=== PATIENT | male | born 1945 | race Caucasian/White ===

== ENCOUNTER 2017-07-07 17:17 | Inpatient (IN) | payer OTHER ==
[~2017-07-07] VITALS: Ht 188 cm; Wt 103.1 kg
[~2017-07-07 17:17] MED LIST: AMIO200 PO; AMOCLA500 PO; ASCO500 PO; ASPI81CH PO; BISA5EC PO; BUME1 PO; CALCA500CH PO; CARV25 PO; CARV6.25 PO; DIGO.125 PO; DIGOX125 MCG PO; DILT30 PO; Ferrous Sulfat325 M2 PO; GABA100; GABA100 PO; HYDURE500 PO; IBUP600 PO; LISI20 PO; LISI5 PO; METO25 PO; MULVITMIND PO; Milk Of Ma400 MG/5 M PO; NAPR250 PO; OMEP20ER PO; OXYC5; Percocet 5-3251 EACH PO; Primalev 10-301 EACH PO; SPIR50 PO; Senna Plus Tab1 EACH PO; Senna S Tablet1 EACH PO; Simvastatin20 MG PO; TORSE20 PO; TRAZ100 PO; VENL25; VENL37.5ER PO; VITAMIN D-32000 UNIT PO; WARF5 PO
[2017-07-07] MEDS ORDERED: ALPR.5CR (18:08)
[2017-07-07] MEDS ORDERED: LORA1 PO (18:11)
[2017-07-07] MEDS ORDERED: OXYC5 PO (18:12)
[2017-07-07] MEDS ORDERED: Omeprazole20 M1 PO (18:12)
[2017-07-07] MEDS ORDERED: SILD50TA PO (18:12)
[2017-07-07 18:29] LABS: BASOPHILS ABSOLUTE AUTO 0.04 K/mm3 (0.00-0.23); BASOPHILS PERCENT AUTO 0 % (0-2); EOSINOPHILS ABSOLUTE AUTO 0.27 K/mm3 (0.00-0.68); EOSINOPHILS PERCENT AUTO 1 % (0-6); Hematocrit 42.8 % (37.0-53.0); Hemoglobin 13.6 g/dL (13.5-17.5); IMMATURE GRAN PERCENT AUTO 1 % (0-1); LYMPHOCYTES ABSOLUTE AUTO 1.39 K/mm3 (0.84-5.20); LYMPHOCYTES PERCENT AUTO 5 % (21-46); MONOCYTES ABSOLUTE AUTO 2.08 K/mm3 (0.16-1.47); MONOCYTES PERCENT AUTO 8 % (4-13); Mean Corpuscular HGB 29.3 pg (26.0-34.0); Mean Corpuscular HGB Conc 31.8 g/dL (31.5-36.5); Mean Corpuscular Volume 92 fL (80-100); Mean Platelet Volume 11.3 fL (9.1-12.4); NEUTROPHILS ABSOLUTE AUTO 22.78 K/mm3 (1.96-9.15); NEUTROPHILS PERCENT AUTO 85 % (41-73); Platelet Count 464 K/mm3 (150-400); RDW Coefficient Variation 18.4 % (11.7-14.2); RDW Standard Deviation 62.6 fL (35.1-46.3); Red Blood Cell Count 4.64 M/mm3 (4.30-5.90); White Blood Cell Count 26.86 K/mm3 (4.00-11.30)
[2017-07-07 18:44] LABS: Albumin, Blood 2.5 g/dL (3.4-5.0); Albumin/Globulin Ratio 0.5 (0.8-1.8); Bun/Creatinine Ratio 20.9 (12.0-20.0); Calcium, Blood 8.4 mg/dL (8.5-10.1); Creatinine, Blood 1.34 mg/dL (0.60-1.20); Globulin, Blood 5.2 g/dL (2.2-4.0); Potassium, Blood 4.4 mmol/L (3.5-5.5); Total Protein, Blood 7.7 g/dL (6.4-8.2)
[2017-07-07 18:48] LABS: Prothrombin Time Results 51.2 Sec (9.7-11.5)
[2017-07-07 19:01] LABS: International Normalized Ratio 4.69
[2017-07-07 19:08] LABS: Bilirubin, Total 0.7 mg/dL (0.1-1.0)
[2017-07-08 05:44] LABS: BASOPHILS ABSOLUTE AUTO 0.05 K/mm3 (0.00-0.23); BASOPHILS PERCENT AUTO 0 % (0-2); EOSINOPHILS ABSOLUTE AUTO 0.29 K/mm3 (0.00-0.68); EOSINOPHILS PERCENT AUTO 1 % (0-6); Hematocrit 38.2 % (37.0-53.0); Hemoglobin 12.1 g/dL (13.5-17.5); IMMATURE GRAN ABSOLUTE AUTO 0.31 K/mm3 (0.00-0.10); IMMATURE GRAN PERCENT AUTO 1 % (0-1); LYMPHOCYTES ABSOLUTE AUTO 1.21 K/mm3 (0.84-5.20); LYMPHOCYTES PERCENT AUTO 5 % (21-46); MONOCYTES ABSOLUTE AUTO 1.58 K/mm3 (0.16-1.47); MONOCYTES PERCENT AUTO 7 % (4-13); Mean Corpuscular HGB 28.6 pg (26.0-34.0); Mean Corpuscular HGB Conc 31.7 g/dL (31.5-36.5); Mean Corpuscular Volume 90 fL (80-100); Mean Platelet Volume 11.7 fL (9.1-12.4); NEUTROPHILS ABSOLUTE AUTO 19.56 K/mm3 (1.96-9.15); NEUTROPHILS PERCENT AUTO 85 % (41-73); Platelet Count 375 K/mm3 (150-400); RDW Coefficient Variation 18.1 % (11.7-14.2); RDW Standard Deviation 60.3 fL (35.1-46.3); Red Blood Cell Count 4.23 M/mm3 (4.30-5.90)
[2017-07-08 05:57] LABS: International Normalized Ratio 2.76
[2017-07-08 05:59] LABS: Prothrombin Time Results 29.6 Sec (9.7-11.5)
[2017-07-08 06:02] LABS: Albumin, Blood 2.1 g/dL (3.4-5.0); Anion Gap 10 mmol/L (6-16); Blood Urea Nitrogen 24 mg/dL (8-24); Bun/Creatinine Ratio 21.1 (12.0-20.0); CO2, Blood 20 mmol/L (21-32); Calcium, Blood 7.6 mg/dL (8.5-10.1); Chloride, Blood 108 mmol/L (98-108); Creatinine, Blood 1.14 mg/dL (0.60-1.20); Glomerular Filtration Rate >60 (60-); Glucose, Blood 119 mg/dL (70-99); Phosphorus, Blood 2.6 mg/dL (2.5-4.9); Potassium, Blood 4.3 mmol/L (3.5-5.5); Sodium, Blood 138 mmol/L (136-145)
[2017-07-08] MEDS ORDERED: DONE5 PO (17:27)
[2017-07-09 05:51] LABS: Hematocrit 35.8 % (37.0-53.0); Hemoglobin 11.5 g/dL (13.5-17.5); Mean Corpuscular HGB 28.9 pg (26.0-34.0); Mean Corpuscular HGB Conc 32.1 g/dL (31.5-36.5); Mean Corpuscular Volume 90 fL (80-100); Mean Platelet Volume 11.2 fL (9.1-12.4); Platelet Count 478 K/mm3 (150-400); RDW Coefficient Variation 17.8 % (11.7-14.2); RDW Standard Deviation 58.8 fL (35.1-46.3); Red Blood Cell Count 3.98 M/mm3 (4.30-5.90)
[2017-07-09 06:08] LABS: Bun/Creatinine Ratio 16.4 (12.0-20.0); Calcium, Blood 7.6 mg/dL (8.5-10.1); Creatinine, Blood 1.28 mg/dL (0.60-1.20)
[2017-07-09 06:12] LABS: BAND PERCENT MAN 7 % (0-8); BASOPHILS PERCENT MAN 0 % (0-2); EOSINOPHILS ABSOLUTE MAN 0.21 K/mm3 (0.00-0.68); EOSINOPHILS PERCENT MAN 1 % (0-6); LYMPHOCYTES ABSOLUTE MAN 0.43 K/mm3 (0.84-5.20); LYMPHOCYTES PERCENT MAN 2 % (21-46); MONOCYTES ABSOLUTE MAN 1.29 K/mm3 (0.16-1.47); MONOCYTES PERCENT MAN 6 % (4-13); MYELOCYTE ABSOLUTE MAN 0.21 K/mm3 (0.00-0.00); MYELOCYTE PERCENT MAN 1 % (0-0); NEUTROPHILS ABSOLUTE MAN 19.44 K/mm3 (1.96-9.15); SEG NEUTROPHILS PERCENT MAN 83 % (41-73); TOTAL CELLS COUNTED 100
[2017-07-09 12:58] LABS: International Normalized Ratio 1.41; Prothrombin Time Results 14.8 Sec (9.7-11.5)
[2017-07-09 21:18] LABS: Vancomycin, Trough 12.4 ug/mL (5.0-10.0)
[2017-07-10 05:18] LABS: BASOPHILS ABSOLUTE AUTO 0.05 K/mm3 (0.00-0.23); BASOPHILS PERCENT AUTO 0 % (0-2); EOSINOPHILS ABSOLUTE AUTO 0.38 K/mm3 (0.00-0.68); EOSINOPHILS PERCENT AUTO 2 % (0-6); Hematocrit 37.3 % (37.0-53.0); Hemoglobin 11.9 g/dL (13.5-17.5); IMMATURE GRAN ABSOLUTE AUTO 0.28 K/mm3 (0.00-0.10); IMMATURE GRAN PERCENT AUTO 1 % (0-1); LYMPHOCYTES ABSOLUTE AUTO 1.25 K/mm3 (0.84-5.20); LYMPHOCYTES PERCENT AUTO 6 % (21-46); MONOCYTES ABSOLUTE AUTO 0.82 K/mm3 (0.16-1.47); MONOCYTES PERCENT AUTO 4 % (4-13); Mean Corpuscular HGB 29.2 pg (26.0-34.0); Mean Corpuscular HGB Conc 31.9 g/dL (31.5-36.5); Mean Corpuscular Volume 91 fL (80-100); Mean Platelet Volume 11.4 fL (9.1-12.4); NEUTROPHILS ABSOLUTE AUTO 17.64 K/mm3 (1.96-9.15); NEUTROPHILS PERCENT AUTO 86 % (41-73); Platelet Count 543 K/mm3 (150-400); RDW Coefficient Variation 17.9 % (11.7-14.2); RDW Standard Deviation 59.2 fL (35.1-46.3); Red Blood Cell Count 4.08 M/mm3 (4.30-5.90); White Blood Cell Count 20.42 K/mm3 (4.00-11.30)
[2017-07-10 05:40] LABS: International Normalized Ratio 1.41; Prothrombin Time Results 14.8 Sec (9.7-11.5)
[2017-07-10 08:50] LABS: Creatinine, Blood 1.31 mg/dL (0.60-1.20)
[2017-07-11 05:13] LABS: Hematocrit 38.5 % (37.0-53.0); Hemoglobin 12.3 g/dL (13.5-17.5); Mean Corpuscular HGB 29.3 pg (26.0-34.0); Mean Corpuscular HGB Conc 31.9 g/dL (31.5-36.5); Mean Corpuscular Volume 92 fL (80-100); Mean Platelet Volume 11.6 fL (9.1-12.4); Platelet Count 538 K/mm3 (150-400); RDW Coefficient Variation 18.1 % (11.7-14.2); White Blood Cell Count 21.78 K/mm3 (4.00-11.30)
[2017-07-11 05:34] LABS: International Normalized Ratio 1.71; Prothrombin Time Results 18.1 Sec (9.7-11.5)
[2017-07-11 05:36] LABS: BAND PERCENT MAN 6 % (0-8); BASOPHILS PERCENT MAN 0 % (0-2); EOSINOPHILS PERCENT MAN 0 % (0-6); LYMPHOCYTES PERCENT MAN 6 % (21-46); MONOCYTES ABSOLUTE MAN 0.65 K/mm3 (0.16-1.47); MONOCYTES PERCENT MAN 3 % (4-13); NEUTROPHILS ABSOLUTE MAN 19.81 K/mm3 (1.96-9.15); SEG NEUTROPHILS PERCENT MAN 85 % (41-73); TOTAL CELLS COUNTED 100
[2017-07-12 07:19] LABS: Hematocrit 41.9 % (37.0-53.0); Hemoglobin 13.2 g/dL (13.5-17.5); Mean Corpuscular HGB 29.5 pg (26.0-34.0); Mean Corpuscular HGB Conc 31.5 g/dL (31.5-36.5); Mean Corpuscular Volume 94 fL (80-100); Mean Platelet Volume 11.1 fL (9.1-12.4); Platelet Count 405 K/mm3 (150-400); Red Blood Cell Count 4.47 M/mm3 (4.30-5.90); White Blood Cell Count 24.72 K/mm3 (4.00-11.30)
[2017-07-12 07:36] LABS: International Normalized Ratio 2.31; Prothrombin Time Results 24.7 Sec (9.7-11.5)
[2017-07-12 07:39] LABS: Anion Gap 7 mmol/L (6-16); Blood Urea Nitrogen 12 mg/dL (8-24); Bun/Creatinine Ratio 10.5 (12.0-20.0); CO2, Blood 24 mmol/L (21-32); Calcium, Blood 7.8 mg/dL (8.5-10.1); Chloride, Blood 109 mmol/L (98-108); Creatinine, Blood 1.14 mg/dL (0.60-1.20); Glomerular Filtration Rate >60 (60-); Glucose, Blood 105 mg/dL (70-99); Potassium, Blood 4.1 mmol/L (3.5-5.5); Sodium, Blood 140 mmol/L (136-145)
[2017-07-12 07:46] LABS: Digoxin (Lanoxin) 0.57 ug/mL (0.80-2.00)
[2017-07-13 05:06] LABS: BASOPHILS ABSOLUTE AUTO 0.08 K/mm3 (0.00-0.23); BASOPHILS PERCENT AUTO 0 % (0-2); EOSINOPHILS ABSOLUTE AUTO 0.24 K/mm3 (0.00-0.68); EOSINOPHILS PERCENT AUTO 1 % (0-6); Hematocrit 39.7 % (37.0-53.0); Hemoglobin 12.4 g/dL (13.5-17.5); IMMATURE GRAN ABSOLUTE AUTO 0.44 K/mm3 (0.00-0.10); IMMATURE GRAN PERCENT AUTO 2 % (0-1); LYMPHOCYTES ABSOLUTE AUTO 0.94 K/mm3 (0.84-5.20); LYMPHOCYTES PERCENT AUTO 5 % (21-46); MONOCYTES ABSOLUTE AUTO 1.15 K/mm3 (0.16-1.47); MONOCYTES PERCENT AUTO 6 % (4-13); Mean Corpuscular HGB 28.7 pg (26.0-34.0); Mean Corpuscular HGB Conc 31.2 g/dL (31.5-36.5); Mean Corpuscular Volume 92 fL (80-100); Mean Platelet Volume 10.8 fL (9.1-12.4); NEUTROPHILS PERCENT AUTO 85 % (41-73); Platelet Count 415 K/mm3 (150-400); RDW Coefficient Variation 18.1 % (11.7-14.2); RDW Standard Deviation 59.7 fL (35.1-46.3); Red Blood Cell Count 4.32 M/mm3 (4.30-5.90); White Blood Cell Count 19.05 K/mm3 (4.00-11.30)
[2017-07-13 05:08] LABS: International Normalized Ratio 2.63; Prothrombin Time Results 28.2 Sec (9.7-11.5)
[2017-07-14 06:00] LABS: Hematocrit 42.9 % (37.0-53.0); Hemoglobin 13.3 g/dL (13.5-17.5); Mean Corpuscular HGB 29.1 pg (26.0-34.0); Mean Corpuscular Volume 94 fL (80-100); Mean Platelet Volume 11.2 fL (9.1-12.4); Platelet Count 466 K/mm3 (150-400); RDW Coefficient Variation 18.1 % (11.7-14.2); RDW Standard Deviation 61.4 fL (35.1-46.3); Red Blood Cell Count 4.57 M/mm3 (4.30-5.90)
[2017-07-14 06:22] LABS: BAND PERCENT MAN 5 % (0-8); BASOPHILS ABSOLUTE MAN 0.66 K/mm3 (0.00-0.23); BASOPHILS PERCENT MAN 3 % (0-2); EOSINOPHILS PERCENT MAN 0 % (0-6); LYMPHOCYTES ABSOLUTE MAN 0.66 K/mm3 (0.84-5.20); LYMPHOCYTES PERCENT MAN 3 % (21-46); MONOCYTES ABSOLUTE MAN 1.33 K/mm3 (0.16-1.47); MONOCYTES PERCENT MAN 6 % (4-13); NEUTROPHILS ABSOLUTE MAN 19.53 K/mm3 (1.96-9.15); SEG NEUTROPHILS PERCENT MAN 83 % (41-73); TOTAL CELLS COUNTED 100
[2017-07-14 06:31] LABS: International Normalized Ratio 2.46; Prothrombin Time Results 26.3 Sec (9.7-11.5)
[2017-07-14] MEDS ORDERED: Augmentin 875-1 EACH PO (11:17)
[2017-07-14] MEDS ORDERED: SACC250C PO (11:17)
== END 2017-07-14 15:54 | disposition home health service (06) | DRG 854 ==
LOC: ER 17:17 → MEDS 20:51 → ENPENDDIS 07-14 10:44 → MEDS 07-14 15:54
PROVIDERS: Emergency Medicine; Family Medicine; Internal Medicine; Orthopaedic Surgery; Pharmacist
PROC: 3E0234Z Introduction of Serum, Toxoid and Vaccine into Muscle, Percutaneous Approach (ICD-10-PCS; 2017-07-07)
PROC: 0JBP0ZZ Excision of Left Lower Leg Subcutaneous Tissue and Fascia, Open Approach (ICD-10-PCS; principal; 2017-07-08 10:45)
DX: A40.0 Sepsis due to streptococcus, group A (principal); L02.416 Cutaneous abscess of left lower limb; G62.9 Polyneuropathy, unspecified; I48.2 Chronic atrial fibrillation; D45 Polycythemia vera; C94.6 Myelodysplastic disease, not elsewhere classified; E78.5 Hyperlipidemia, unspecified; F41.9 Anxiety disorder, unspecified; L03.116 Cellulitis of left lower limb; I10 Essential (primary) hypertension; Z79.01 Long term (current) use of anticoagulants; I73.9 Peripheral vascular disease, unspecified; R79.1 Abnormal coagulation profile; K21.9 Gastro-esophageal reflux disease without esophagitis; I25.5 Ischemic cardiomyopathy; L98.499 Non-pressure chronic ulcer of skin of other sites with unspecified severity
CPT/HCPCS: 36415; 73701; 80048; 80053; 80069; 80162; 80202; 82565; 83605; 85025; 85027; 85610; 85651; 85730; 86140; 87040; 87070; 87075; 87077; 87147; 87186; 87205; 93922; 96365; 96366; 97110; 97116; 97161; 97530; 99285; G8978; G8979; J1160; J2250; J2405; J2543; J3010; J3370; J7030; J7050; J7120; Q9967

== ENCOUNTER → 2017-07-21 | Outpatient (CLI) | payer OTHER ==
[~2017-07-21] MED LIST changes: +ACET500 PO; +ALPR.5CR; +Augmentin 875-1 EACH PO; +CYCL10 PO; +Calcium Carbon650 MG PO; +DONE5 PO; +GABA300 PO; +LORA1 PO; +MULTI VITAMIN1 EACH PO; +MUSE1000 MCG UD; +OXYC5 PO; +Omeprazole20 M1 PO; +SACC250C PO; +SILD50TA PO; +TAMS.4ER PO; +VENL37.5 PO
[2017-07-21 13:47] LABS: International Normalized Ratio 2.12; Prothrombin Time Results 22.6 Sec (9.7-11.5)
== END | disposition home or self-care (01) ==
LOC: LAB HH 10:54
PROVIDERS: Hospitalist
DX: D47.1 Chronic myeloproliferative disease (principal)
CPT/HCPCS: 36415; 85610

== ENCOUNTER → 2017-08-04 | Outpatient (CLI) | payer OTHER ==
[2017-08-04 11:56] LABS: International Normalized Ratio 2.97
== END | disposition home or self-care (01) ==
LOC: LAB HH 11:05
PROVIDERS: Hospitalist
DX: Z79.01 Long term (current) use of anticoagulants (principal); Z51.81 Encounter for therapeutic drug level monitoring
CPT/HCPCS: 85610

== ENCOUNTER → 2017-08-11 | Outpatient (CLI) | payer OTHER ==
[2017-08-11 10:50] LABS: Prothrombin Time Results 45.8 Sec (9.7-11.5)
[2017-08-11 11:01] LABS: International Normalized Ratio 4.21
== END ==
LOC: LAB 10:24
PROVIDERS: Hospitalist
DX: I73.9 Peripheral vascular disease, unspecified (principal); I10 Essential (primary) hypertension; G62.9 Polyneuropathy, unspecified; L03.116 Cellulitis of left lower limb
CPT/HCPCS: 85610

== ENCOUNTER 2018-06-20 22:25 | Inpatient (IN) | payer OTHER ==
[~2018-06-20] VITALS: Ht 188 cm; Wt 92.3 kg
[~2018-06-20 22:25] MED LIST changes: -ACET500 PO; -CYCL10 PO; -Calcium Carbon650 MG PO; -GABA300 PO; -MULTI VITAMIN1 EACH PO; -MUSE1000 MCG UD; -TAMS.4ER PO; -VENL37.5 PO
[2018-06-20 22:40] LABS: PCO2 Arterial 36.5 mmHg (35-45); PO2 Arterial 56.5 mmHg (80-100); pH Blood Arterial 7.41 (7.35-7.45)
[2018-06-20 22:47] LABS: BASOPHILS ABSOLUTE AUTO 0.14 K/mm3 (0.00-0.23); BASOPHILS PERCENT AUTO 0 % (0-2); EOSINOPHILS ABSOLUTE AUTO 0.13 K/mm3 (0.00-0.68); EOSINOPHILS PERCENT AUTO 0 % (0-6); Hematocrit 38.8 % (37.0-53.0); Hemoglobin 12.4 g/dL (13.5-17.5); IMMATURE GRAN ABSOLUTE AUTO 1.36 K/mm3 (0.00-0.10); IMMATURE GRAN PERCENT AUTO 4 % (0-1); LYMPHOCYTES ABSOLUTE AUTO 1.11 K/mm3 (0.84-5.20); LYMPHOCYTES PERCENT AUTO 3 % (21-46); MONOCYTES ABSOLUTE AUTO 2.67 K/mm3 (0.16-1.47); MONOCYTES PERCENT AUTO 8 % (4-13); Mean Corpuscular HGB 31.7 pg (26.0-34.0); Mean Corpuscular Volume 99 fL (80-100); NEUTROPHILS ABSOLUTE AUTO 30.31 K/mm3 (1.96-9.15); NEUTROPHILS PERCENT AUTO 85 % (41-73); Platelet Count 409 K/mm3 (150-400); RDW Coefficient Variation 19.9 % (11.7-14.2); RDW Standard Deviation 72.6 fL (35.1-46.3); Red Blood Cell Count 3.91 M/mm3 (4.30-5.90); White Blood Cell Count 35.72 K/mm3 (4.00-11.30)
[2018-06-20 22:59] LABS: International Normalized Ratio 2.17; Prothrombin Time Results 21.4 Sec (9.7-11.5)
[2018-06-20 23:02] LABS: Source, Urine Catheter
[2018-06-20 23:06] LABS: Alanine Aminotransfer (ALT/SGP 41 U/L (12-78); Albumin, Blood 2.9 g/dL (3.4-5.0); Albumin/Globulin Ratio 0.9 (0.8-1.8); Alk Phos 126 U/L (50-136); Anion Gap 8 mmol/L (6-16); Aspartate Aminotrans (AST/SGOT 32 U/L (12-37); Bilirubin, Total 0.6 mg/dL (0.1-1.0); Blood Urea Nitrogen 41 mg/dL (8-24); Bun/Creatinine Ratio 19.6 (12.0-20.0); CO2, Blood 23 mmol/L (21-32); Calcium, Blood 7.5 mg/dL (8.5-10.1); Chloride, Blood 110 mmol/L (98-108); Creatinine, Blood 2.09 mg/dL (0.60-1.20); Globulin, Blood 3.2 g/dL (2.2-4.0); Glomerular Filtration Rate 33 (60-); Glucose, Blood 122 mg/dL (70-99); Potassium, Blood 4.8 mmol/L (3.5-5.5); Sodium, Blood 141 mmol/L (136-145); Total Protein, Blood 6.1 g/dL (6.4-8.2); Troponin I <0.015 ng/mL (0.000-0.040)
[2018-06-20 23:06] LABS: Blood, Urine Neg (Neg); Glucose Qualitative, Urine Neg (Neg); Ketones, Urine 1+ (Neg); Leukocyte Esterase, Urine 1+ (Neg); Nitrite, Urine Neg (Neg); Protein, Urine 1+ (Neg); Specific Gravity, Urine 1.015 (1.003-1.022); Urobilinogen, Urine 1+ (Normal)
[2018-06-20 23:17] LABS: Appearance, Urine Clear (Clear); Bilirubin, Urine 1+ (Neg); Color, Urine Amber (P-Yellow)
[2018-06-20 23:19] LABS: Amorphous Light (0-Heavy); Bacteria Not Seen /hpf; Red Blood Cells, Urine Not Seen /hpf (0-2); Squamous Epithelial Cells Not Seen /hpf (Few); White Blood Cells, Urine Rare /hpf (0-5)
[2018-06-20] MEDS ORDERED: Calcium Carbon650 MG PO (23:20)
[2018-06-20] MEDS ORDERED: MULTI VITAMIN1 EACH PO (23:22)
[2018-06-20] MEDS ORDERED: VENL37.5 PO (23:23)
[2018-06-20] MEDS ORDERED: TAMS.4ER PO (23:25)
[2018-06-20] MEDS ORDERED: MUSE1000 MCG UD (23:28)
[2018-06-20] MEDS ORDERED: ACET500 PO (23:29)
[2018-06-20] MEDS ORDERED: CYCL10 PO (23:31)
[2018-06-21 01:14] LABS: U Amphetamine Screen Not Detected; U Barbituate Screen Not Detected; U Benzodiazapine Screen Not Detected; U Cannabinoids Screen Not Detected; U Cocaine Screen Not Detected; U Methadone Screen Not Detected; U Methamphetamine Screen Not Detected; U Opiates Screen Not Detected; U Phencyclidine Screen Not Detected
[2018-06-21 01:15] LABS: U Buprenorphine Screen Not Detected; U Oxycodone Screen Not Detected; U Propoxyphene Screen Not Detected
[2018-06-21 01:22] LABS: CPK Creatine Kinase 62 U/L (39-308)
[2018-06-21] MEDS ORDERED: GABA300 PO ×2 (02:57→02:58)
[2018-06-21 03:52] LABS: Hematocrit 38.2 % (37.0-53.0); Hemoglobin 12.2 g/dL (13.5-17.5); Mean Corpuscular HGB 31.5 pg (26.0-34.0); Mean Corpuscular HGB Conc 31.9 g/dL (31.5-36.5); Mean Corpuscular Volume 99 fL (80-100); Mean Platelet Volume 10.9 fL (9.1-12.4); Platelet Count 467 K/mm3 (150-400); RDW Coefficient Variation 19.8 % (11.7-14.2); RDW Standard Deviation 71.5 fL (35.1-46.3); Red Blood Cell Count 3.87 M/mm3 (4.30-5.90); White Blood Cell Count 36.45 K/mm3 (4.00-11.30)
[2018-06-21 04:09] LABS: International Normalized Ratio 2.25; Prothrombin Time Results 22.1 Sec (9.7-11.5)
[2018-06-21 04:12] LABS: Albumin/Globulin Ratio 0.9 (0.8-1.8); Bilirubin, Total 0.6 mg/dL (0.1-1.0); Bun/Creatinine Ratio 20.9 (12.0-20.0); Calcium, Blood 7.4 mg/dL (8.5-10.1); Creatinine, Blood 2.01 mg/dL (0.60-1.20); Globulin, Blood 3.2 g/dL (2.2-4.0); Potassium, Blood 4.8 mmol/L (3.5-5.5); Total Protein, Blood 6.2 g/dL (6.4-8.2)
[2018-06-21 13:52] LABS: Adenovirus Not Detected (NOT DETECT); Bordetella pertussis Not Detected (NOT DETECT); Chlamydophila pneumoniae Not Detected (NOT DETECT); Coronavirus 229E Not Detected (NOT DETECT); Coronavirus HKU1 Not Detected (NOT DETECT); Coronavirus NL63 Not Detected (NOT DETECT); Coronavirus OC43 Not Detected (NOT DETECT); Human Metapneumovirus Not Detected (NOT DETECT); Human Rhinovirus/Enterovirus Not Detected (NOT DETECT); Influenza A/2009-H1 Not Detected (NOT DETECT); Influenza A/H1 Not Detected (NOT DETECT); Influenza A/H3 Not Detected (NOT DETECT); Influenza B Not Detected (NOT DETECT); Mycoplasma pneumoniae Not Detected (NOT DETECT); Parainfluenza Virus 1 Not Detected (NOT DETECT); Parainfluenza Virus 2 Not Detected (NOT DETECT); Parainfluenza Virus 3 Not Detected (NOT DETECT); Parainfluenza Virus 4 Not Detected (NOT DETECT); Respiratory Syncytial Virus Not Detected (NOT DETECT)
[2018-06-21 15:30] LABS: Influenza A Not Detected (NOT DETECT)
[2018-06-22 04:42] LABS: BASOPHILS ABSOLUTE AUTO 0.11 K/mm3 (0.00-0.23); BASOPHILS PERCENT AUTO 1 % (0-2); EOSINOPHILS ABSOLUTE AUTO 0.35 K/mm3 (0.00-0.68); EOSINOPHILS PERCENT AUTO 2 % (0-6); Hematocrit 37.5 % (37.0-53.0); Hemoglobin 11.9 g/dL (13.5-17.5); IMMATURE GRAN ABSOLUTE AUTO 0.92 K/mm3 (0.00-0.10); IMMATURE GRAN PERCENT AUTO 4 % (0-1); LYMPHOCYTES ABSOLUTE AUTO 0.76 K/mm3 (0.84-5.20); LYMPHOCYTES PERCENT AUTO 3 % (21-46); MONOCYTES ABSOLUTE AUTO 0.79 K/mm3 (0.16-1.47); MONOCYTES PERCENT AUTO 4 % (4-13); Mean Corpuscular HGB 31.2 pg (26.0-34.0); Mean Corpuscular HGB Conc 31.7 g/dL (31.5-36.5); Mean Corpuscular Volume 98 fL (80-100); Mean Platelet Volume 10.8 fL (9.1-12.4); NEUTROPHILS ABSOLUTE AUTO 19.95 K/mm3 (1.96-9.15); NEUTROPHILS PERCENT AUTO 87 % (41-73); Platelet Count 399 K/mm3 (150-400); RDW Coefficient Variation 20.5 % (11.7-14.2); Red Blood Cell Count 3.82 M/mm3 (4.30-5.90); White Blood Cell Count 22.88 K/mm3 (4.00-11.30)
[2018-06-22 04:57] LABS: Bun/Creatinine Ratio 20.1 (12.0-20.0); Calcium, Blood 7.5 mg/dL (8.5-10.1); Creatinine, Blood 1.64 mg/dL (0.60-1.20); International Normalized Ratio 2.19; Potassium, Blood 4.5 mmol/L (3.5-5.5); Prothrombin Time Results 21.6 Sec (9.7-11.5)
[2018-06-23 04:44] LABS: BASOPHILS ABSOLUTE AUTO 0.11 K/mm3 (0.00-0.23); BASOPHILS PERCENT AUTO 1 % (0-2); EOSINOPHILS ABSOLUTE AUTO 0.54 K/mm3 (0.00-0.68); EOSINOPHILS PERCENT AUTO 2 % (0-6); Hematocrit 40.5 % (37.0-53.0); Hemoglobin 12.9 g/dL (13.5-17.5); IMMATURE GRAN ABSOLUTE AUTO 0.72 K/mm3 (0.00-0.10); IMMATURE GRAN PERCENT AUTO 3 % (0-1); LYMPHOCYTES ABSOLUTE AUTO 0.63 K/mm3 (0.84-5.20); LYMPHOCYTES PERCENT AUTO 3 % (21-46); MONOCYTES ABSOLUTE AUTO 0.67 K/mm3 (0.16-1.47); MONOCYTES PERCENT AUTO 3 % (4-13); Mean Corpuscular HGB 31.1 pg (26.0-34.0); Mean Corpuscular HGB Conc 31.9 g/dL (31.5-36.5); Mean Corpuscular Volume 98 fL (80-100); NEUTROPHILS ABSOLUTE AUTO 20.68 K/mm3 (1.96-9.15); NEUTROPHILS PERCENT AUTO 89 % (41-73); Platelet Count 441 K/mm3 (150-400); RDW Coefficient Variation 20.5 % (11.7-14.2); RDW Standard Deviation 72.3 fL (35.1-46.3); Red Blood Cell Count 4.15 M/mm3 (4.30-5.90); White Blood Cell Count 23.35 K/mm3 (4.00-11.30)
[2018-06-23 04:58] LABS: International Normalized Ratio 1.97; Prothrombin Time Results 19.5 Sec (9.7-11.5)
[2018-06-23 05:03] LABS: Bun/Creatinine Ratio 18.8 (12.0-20.0); Calcium, Blood 8.3 mg/dL (8.5-10.1); Creatinine, Blood 1.38 mg/dL (0.60-1.20); Potassium, Blood 4.5 mmol/L (3.5-5.5)
[2018-06-23] MEDS ORDERED: ACIDOPHILUS1 EAC1 PO (11:15)
[2018-06-23] MEDS ORDERED: Augmentin 875-1 EACH PO (11:16)
[2018-06-23] MEDS ORDERED: WARF2.5 PO (11:19)
== END 2018-06-23 13:51 | disposition home or self-care (01) | DRG 871 ==
LOC: ER 22:25 → ICUW 06-21 00:04 → MEDS 06-22 17:46 → ENPENDDIS 06-23 10:00 → MEDS 06-23 13:51
PROVIDERS: Emergency Medicine; Internal Medicine
DX: A41.9 Sepsis, unspecified organism (principal); R65.21 Severe sepsis with septic shock; J96.01 Acute respiratory failure with hypoxia; J18.9 Pneumonia, unspecified organism; G92 Toxic encephalopathy; N17.9 Acute kidney failure, unspecified; I13.0 Hypertensive heart and chronic kidney disease with heart failure and stage 1 through stage 4 chronic kidney disease, or unspecified chronic kidney disease; I50.32 Chronic diastolic (congestive) heart failure; D47.1 Chronic myeloproliferative disease; N18.3 Chronic kidney disease, stage 3 (moderate); I73.9 Peripheral vascular disease, unspecified; E78.5 Hyperlipidemia, unspecified
CPT/HCPCS: 26951; 36415; 36556; 36600; 51702; 70450; 74176; 80048; 80053; 81001; 82140; 82550; 82803; 83605; 83690; 83880; 84145; 84484; 85025; 85027; 85610; 87086; 87486; 87581; 87633; 87798; 93005; 93010; 96361; 96365; 96375; 99285-25; C1751; J1956; J2543; J7030; J7060

== ENCOUNTER 2019-08-22 18:42 | Inpatient (IN) | payer OTHER ==
[~2019-08-22] VITALS: Ht 185.4 cm; Wt 98.8 kg
[~2019-08-22 18:42] MED LIST changes: +ACET500 PO; +ACIDOPHILUS1 EAC1 PO; +CYCL10 PO; +Calcium Carbon650 MG PO; +GABA300 PO; +MULTI VITAMIN1 EACH PO; +MUSE1000 MCG UD; +TAMS.4ER PO; +VENL37.5 PO; +WARF2.5 PO
[2019-08-22] MEDS ORDERED: XARELTO20 MG PO (19:00)
[2019-08-22] MEDS ORDERED: VITB2 PO (19:01)
[2019-08-22] MEDS ORDERED: Doxycycline Mo100 M1 PO (19:01)
[2019-08-22] MEDS ORDERED: LEVSOD25 PO (19:02)
[2019-08-22 20:00] LABS: Hematocrit 33.6 % (37.0-53.0); Hemoglobin 10.8 g/dL (13.5-17.5); Mean Corpuscular HGB 35.6 pg (26.0-34.0); Mean Corpuscular HGB Conc 32.1 g/dL (31.5-36.5); Mean Corpuscular Volume 111 fL (80-100); Mean Platelet Volume 12.6 fL (9.1-12.4); NRBC ABSOLUTE 0.04 K/mm3 (0.00-0.02); NRBC Auto 0.3 /100 WBC (0.0-0.2); Platelet Count 161 K/mm3 (150-400); RDW Coefficient Variation 17.4 % (11.7-14.2); RDW Standard Deviation 70.8 fL (35.1-46.3); Red Blood Cell Count 3.03 M/mm3 (4.30-5.90); White Blood Cell Count 11.65 K/mm3 (4.00-11.30)
[2019-08-22 20:19] LABS: Albumin, Blood 3.5 g/dL (3.4-5.0); Albumin/Globulin Ratio 1.1 (0.8-1.8); BAND PERCENT MAN 4 % (0-8); BASOPHILS PERCENT MAN 0 % (0-2); Bilirubin, Total 0.7 mg/dL (0.1-1.0); Bun/Creatinine Ratio 18.9 (12.0-20.0); Creatinine, Blood 1.43 mg/dL (0.60-1.20); EOSINOPHILS ABSOLUTE MAN 0.58 K/mm3 (0.00-0.68); EOSINOPHILS PERCENT MAN 5 % (0-6); Globulin, Blood 3.2 g/dL (2.2-4.0); LYMPHOCYTES ABSOLUTE MAN 0.93 K/mm3 (0.84-5.20); LYMPHOCYTES PERCENT MAN 8 % (21-46); METAMYELOCYTE ABSOLUTE MAN 0.34 K/mm3 (0.00-0.00); METAMYELOCYTE PERCENT MAN 3 % (0-0); MONOCYTES ABSOLUTE MAN 0.23 K/mm3 (0.16-1.47); MONOCYTES PERCENT MAN 2 % (4-13); NEUTROPHILS ABSOLUTE MAN 9.55 K/mm3 (1.96-9.15); Potassium, Blood 4.7 mmol/L (3.5-5.5); SEG NEUTROPHILS PERCENT MAN 78 % (41-73); TOTAL CELLS COUNTED 100; Total Protein, Blood 6.7 g/dL (6.4-8.2)
[2019-08-22 20:46] LABS: Source, Urine Clean Catch
[2019-08-22 20:49] LABS: Bilirubin, Urine Neg (Neg); Blood, Urine 1+ (Neg); Glucose Qualitative, Urine Neg (Neg); Ketones, Urine 1+ (Neg); Leukocyte Esterase, Urine Neg (Neg); Nitrite, Urine Neg (Neg); Protein, Urine 2+ (Neg); Specific Gravity, Urine 1.015 (1.003-1.022); Urobilinogen, Urine NORM (Normal)
[2019-08-22 21:03] LABS: Appearance, Urine Clear (Clear); Color, Urine Yellow (P-Yellow)
[2019-08-22 21:06] LABS: Amorphous Light (0-Heavy); Bacteria Few /hpf; Mucus Light (0-Heavy); Red Blood Cells, Urine 0-2 /hpf (0-2); Squamous Epithelial Cells Rare /hpf (Few); White Blood Cells, Urine Not Seen /hpf (0-5)
[2019-08-23 00:48] LABS: Adenovirus Not Detected (NOT DETECT); Bordetella pertussis Not Detected (NOT DETECT); Chlamydophila pneumoniae Not Detected (NOT DETECT); Coronavirus 229E Not Detected (NOT DETECT); Coronavirus HKU1 Not Detected (NOT DETECT); Coronavirus NL63 Not Detected (NOT DETECT); Coronavirus OC43 Not Detected (NOT DETECT); Human Metapneumovirus Detected (NOT DETECT); Human Rhinovirus/Enterovirus Not Detected (NOT DETECT); Influenza A Not Detected (NOT DETECT); Influenza A/2009-H1 Not Detected (NOT DETECT); Influenza A/H1 Not Detected (NOT DETECT); Influenza A/H3 Not Detected (NOT DETECT); Influenza B Not Detected (NOT DETECT); Mycoplasma pneumoniae Not Detected (NOT DETECT); Parainfluenza Virus 1 Not Detected (NOT DETECT); Parainfluenza Virus 2 Not Detected (NOT DETECT); Parainfluenza Virus 3 Not Detected (NOT DETECT); Parainfluenza Virus 4 Not Detected (NOT DETECT); Respiratory Syncytial Virus Not Detected (NOT DETECT)
[2019-08-23] MEDS ORDERED: FOLI1 PO (01:10)
[2019-08-23] MEDS ORDERED: MUSE1000 MCG UR (01:12)
[2019-08-23] MEDS ORDERED: Anti-Diarrheal2 MG PO (01:13)
--- NOTE | 2019-08-23 04:15 | NUR ---
SHIFT SUMMARY PT NEW ER ADMIT THIS SHIFT (0025), NO ACUTE CHANGES SINCE ASSUMING CARE, NO C/O ANY KIND, PT HAS BEEN CONFUSED BUT REDIRECTABLE T/O SHIFT, 1 ASSIST W/URINAL @ BEDSIDE, BEDRESTING AT THIS TIME, WILL CONT TO MONITOR UNTIL REPORT GIVEN TO STEVE RN.
[2019-08-23 05:52] LABS: Hemoglobin 10.4 g/dL (13.5-17.5); Mean Corpuscular HGB 35.4 pg (26.0-34.0); Mean Corpuscular HGB Conc 32.5 g/dL (31.5-36.5); Mean Corpuscular Volume 109 fL (80-100); Mean Platelet Volume 12.8 fL (9.1-12.4); NRBC ABSOLUTE 0.03 K/mm3 (0.00-0.02); NRBC Auto 0.3 /100 WBC (0.0-0.2); Platelet Count 139 K/mm3 (150-400); RDW Coefficient Variation 17.2 % (11.7-14.2); Red Blood Cell Count 2.94 M/mm3 (4.30-5.90); White Blood Cell Count 9.81 K/mm3 (4.00-11.30)
[2019-08-23 06:21] LABS: Albumin, Blood 3.3 g/dL (3.4-5.0); Bilirubin, Total 0.8 mg/dL (0.1-1.0); Bun/Creatinine Ratio 15.7 (12.0-20.0); Creatinine, Blood 1.4 mg/dL (0.60-1.20); Globulin, Blood 3.2 g/dL (2.2-4.0); Potassium, Blood 4.2 mmol/L (3.5-5.5); Total Protein, Blood 6.5 g/dL (6.4-8.2)
[2019-08-23 06:37] LABS: BAND PERCENT MAN 4 % (0-8); BASOPHILS PERCENT MAN 0 % (0-2); EOSINOPHILS ABSOLUTE MAN 0.09 K/mm3 (0.00-0.68); EOSINOPHILS PERCENT MAN 1 % (0-6); LYMPHOCYTES ABSOLUTE MAN 1.07 K/mm3 (0.84-5.20); LYMPHOCYTES PERCENT MAN 11 % (21-46); METAMYELOCYTE ABSOLUTE MAN 0.09 K/mm3 (0.00-0.00); METAMYELOCYTE PERCENT MAN 1 % (0-0); MONOCYTES ABSOLUTE MAN 0.78 K/mm3 (0.16-1.47); MONOCYTES PERCENT MAN 8 % (4-13); NEUTROPHILS ABSOLUTE MAN 7.74 K/mm3 (1.96-9.15); SEG NEUTROPHILS PERCENT MAN 75 % (41-73); TOTAL CELLS COUNTED 100
--- NOTE | 2019-08-23 17:30 | NUR ---
SHIFT SUMMARY PT UP TO BATHROOM USING FWW WITH 1 PERSON ASSIST. REQUESTING TYLENOL FOR GENERALIZED DISCOMFORT TWICE TODAY. SLIGHTLY SOB WITH ACTIVITY. PT REPORTS MD STATED HE COULD GO HOME TOMORROW. CONCERNED HIS WALLET WAS LOST. CALLED [facility] AND THEY REPORTED IT IS IN HIS ROOM.
--- NOTE | 2019-08-24 04:19 | NUR ---
SHIFT SUMMARY PT MUCH MORE ORIENTED THIS SHIFT, HOWEVER PT DID PULL OUT HIS IV IN HIS SLEEP. IV REPLACED BY [employer] REPRESENTATIVE. PT CALLED APPROPRIATELY THROUGHOUT THE NIGHT. VOIDED WELL WITH THE URINAL STANDING AT BEDSIDE. DENIED ANY PAIN. REMAINED ON RA. LUNG SOUNDS CONTINUE TO SOUND COARSE THROUGHOUT. NO COUGH NOTED. VSS. NO ACUTE CHANGES THIS SHIFT. WILL CONTINUE TO MONITOR.
[2019-08-24 06:23] LABS: Hematocrit 32.4 % (37.0-53.0); Hemoglobin 10.5 g/dL (13.5-17.5)
[2019-08-24 06:37] LABS: Bun/Creatinine Ratio 17.2 (12.0-20.0); Calcium, Blood 7.9 mg/dL (8.5-10.1); Creatinine, Blood 1.34 mg/dL (0.60-1.20); Potassium, Blood 4.3 mmol/L (3.5-5.5)
[2019-08-24] MEDS ORDERED: Anti-Diarrheal2 MG PO (10:21)
[2019-08-24] MEDS ORDERED: Tab-A-Vite1 EACH PO (10:22)
[2019-08-24] MEDS ORDERED: ALBU90OI INH (10:27)
[2019-08-24] MEDS ORDERED: AZIT500 PO (10:27)
[2019-08-24] MEDS ORDERED: Augmentin 875-1 EACH PO (10:28)
[2019-08-24] MEDS ORDERED: Duoneb 2.5-0.5 M3 ML INH (10:29)
--- NOTE | 2019-08-24 11:04 | NUR ---
DISCHARGE INSTRUCTIONS GIVEN TO THE PATIENT. SPOKE WITH CAREGIVER, DIPESH GUZMÁN DISCHARGE HOME AT APPROX 1000; INFORMED HER THAT I WOULD BE SENDING HOME INFORMATION REGARDING HIS DISCHARGE AND MEDICATIONS. PATIENT TO DISCHARGE WITH [facility] AT 1130. IV AND TELE REMOVED FROM PATIENT. PATIENT IN ROOM AWAITING DISCHARGE.
--- NOTE | 2019-08-24 11:31 | NUR ---
PATIENT DISCHARGED AT 1130. PATCH SETTER TOOK PATIENT OUT IN A WHEEL CHAIR TO MEET THE TRANSPORTER. PATIENT TOOK ALL OF HIS BELONGINGS.
== END 2019-08-24 11:31 | disposition home or self-care (01) | DRG 871 ==
LOC: ER 18:42 → MEDS 23:30
PROVIDERS: Emergency Medicine; Internal Medicine; ADMIT Internal Medicine
DX: A41.9 Sepsis, unspecified organism (principal); G92 Toxic encephalopathy; J12.3 Human metapneumovirus pneumonia; E87.1 Hypo-osmolality and hyponatremia; D45 Polycythemia vera; D69.6 Thrombocytopenia, unspecified; E86.0 Dehydration; F03.90 Unspecified dementia, unspecified severity, without behavioral disturbance, psychotic disturbance, mood disturbance, and anxiety; F41.9 Anxiety disorder, unspecified; G62.9 Polyneuropathy, unspecified; I12.9 Hypertensive chronic kidney disease with stage 1 through stage 4 chronic kidney disease, or unspecified chronic kidney disease; N18.3 Chronic kidney disease, stage 3 (moderate); K21.9 Gastro-esophageal reflux disease without esophagitis; E78.5 Hyperlipidemia, unspecified; Z87.891 Personal history of nicotine dependence
CPT/HCPCS: 0099U; 36415; 51701; 70450; 71045; 80048; 80053; 81001; 83605; 85014; 85018; 85025; 87040; 92610; 93005; 93010; 93306; 94640; 94667; 94760; 94761; 96361-59; 96365-59; 96366-59; 96367-59; 97116; 97162; 97165; 99285-25; A9270; J0456; J0696; J2405; J7030; J7050; J7120

== ENCOUNTER 2022-08-30 07:12 | Emergency (ER) | payer OTHER ==
[~2022-08-30] VITALS: Ht 185.4 cm; Wt 83.9 kg
[~2022-08-30 07:12] MED LIST changes: +ALBU90OI INH; +AZIT500 PO; +Anti-Diarrheal2 MG PO; +Doxycycline Mo100 M1 PO; +Duoneb 2.5-0.5 M3 ML INH; +FOLI1 PO; +LEVSOD25 PO; +MUSE1000 MCG UR; +Tab-A-Vite1 EACH PO; +VITB2 PO; +XARELTO20 MG PO
[2022-08-30 08:11] LABS: BASOPHILS ABSOLUTE AUTO 0.28 K/mm3 (0.00-0.23); BASOPHILS PERCENT AUTO 1 % (0-2); EOSINOPHILS ABSOLUTE AUTO 0.87 K/mm3 (0.00-0.68); EOSINOPHILS PERCENT AUTO 3 % (0-6); Hematocrit 38.6 % (37.0-53.0); Hemoglobin 12.1 g/dL (13.5-17.5); IMMATURE GRAN ABSOLUTE AUTO 1.25 K/mm3 (0.00-0.10); IMMATURE GRAN PERCENT AUTO 5 % (0-1); LYMPHOCYTES ABSOLUTE AUTO 0.94 K/mm3 (0.84-5.20); LYMPHOCYTES PERCENT AUTO 4 % (21-46); MONOCYTES ABSOLUTE AUTO 1.44 K/mm3 (0.16-1.47); MONOCYTES PERCENT AUTO 5 % (4-13); Mean Corpuscular HGB 31.9 pg (26.0-34.0); Mean Corpuscular HGB Conc 31.3 g/dL (31.5-36.5); Mean Corpuscular Volume 102 fL (80-100); Mean Platelet Volume 12.6 fL (9.1-12.4); NEUTROPHILS ABSOLUTE AUTO 21.85 K/mm3 (1.96-9.15); NEUTROPHILS PERCENT AUTO 82 % (41-73); NRBC ABSOLUTE 0.05 K/mm3 (0.00-0.02); NRBC Auto 0.2 /100 WBC (0.0-0.2); Platelet Count 153 K/mm3 (150-400); RDW Coefficient Variation 17.2 % (11.7-14.2); RDW Standard Deviation 63.1 fL (35.1-46.3); Red Blood Cell Count 3.79 M/mm3 (4.30-5.90); White Blood Cell Count 26.63 K/mm3 (4.00-11.30)
[2022-08-30 08:18] LABS: Bun/Creatinine Ratio 14.9 (12.0-20.0); Creatinine, Blood 1.41 mg/dL (0.60-1.20); Potassium, Blood 4.8 mmol/L (3.5-5.5)
[2022-08-30 08:50] LABS: Source, Urine Clean Catch
[2022-08-30 08:59] LABS: Bilirubin, Urine Neg (Neg); Blood, Urine Neg (Neg); Glucose Qualitative, Urine Neg (Neg); Ketones, Urine Neg (Neg); Leukocyte Esterase, Urine Neg (Neg); Nitrite, Urine Neg (Neg); Protein, Urine Neg (Neg); Specific Gravity, Urine 1.005 (1.003-1.022); Urobilinogen, Urine NORM (Normal)
[2022-08-30 09:15] LABS: Appearance, Urine Clear (Clear); Color, Urine Yellow (P-Yellow)
== END 2022-08-30 10:33 | disposition home or self-care (01) ==
LOC: ER 07:12
PROVIDERS: Emergency Medicine
DX: S00.03XA Contusion of scalp, initial encounter (principal); K21.9 Gastro-esophageal reflux disease without esophagitis; F03.90 Unspecified dementia, unspecified severity, without behavioral disturbance, psychotic disturbance, mood disturbance, and anxiety; I10 Essential (primary) hypertension; Z88.8 Allergy status to other drugs, medicaments and biological substances; Z79.899 Other long term (current) drug therapy; Z79.890 Hormone replacement therapy; Z79.02 Long term (current) use of antithrombotics/antiplatelets; W19.XXXA Unspecified fall, initial encounter
CPT/HCPCS: 36415; 70450; 71045; 80048; 81003; 84484; 85025; 93005; 93010; 99284-25

== ENCOUNTER 2022-11-06 11:16 | Inpatient (IN) | payer OTHER ==
[~2022-11-06] VITALS: Ht 185.4 cm; Wt 95.6 kg
[~2022-11-06 11:16] MED LIST changes: -ACIDOPHILUS1 EAC1 PO; +CALCIUM CARBON650 MG PO; -Calcium Carbon650 MG PO; +EUTHYROX50 MCG PO; +LACT PO; -LEVSOD25 PO; +LOPE2C PO; -Omeprazole20 M1 PO; -TRAZ100 PO; +TRAZ50 PO
[2022-11-06 11:52] LABS: Hematocrit 32.9 % (37.0-53.0); Mean Corpuscular HGB 30.4 pg (26.0-34.0); Mean Corpuscular HGB Conc 30.4 g/dL (31.5-36.5); Mean Corpuscular Volume 100 fL (80-100); NRBC ABSOLUTE 0.11 K/mm3 (0.00-0.02); NRBC Auto 0.4 /100 WBC (0.0-0.2); Platelet Count 262 K/mm3 (150-400); RDW Coefficient Variation 18.3 % (11.7-14.2); RDW Standard Deviation 65.9 fL (35.1-46.3); Red Blood Cell Count 3.29 M/mm3 (4.30-5.90); White Blood Cell Count 27.83 K/mm3 (4.00-11.30)
[2022-11-06 12:01] LABS: Albumin, Blood 2.8 g/dL (3.4-5.0); Albumin/Globulin Ratio 0.8 (0.8-1.8); Bilirubin, Total 0.7 mg/dL (0.1-1.0); Bun/Creatinine Ratio 16.9 (12.0-20.0); Calcium, Blood 7.4 mg/dL (8.5-10.1); Creatinine, Blood 1.48 mg/dL (0.60-1.20); Globulin, Blood 3.6 g/dL (2.2-4.0); Total Protein, Blood 6.4 g/dL (6.4-8.2)
[2022-11-06 12:40] LABS: BAND PERCENT MAN 3 % (0-8); BASOPHILS ABSOLUTE MAN 0.83 K/mm3 (0.00-0.23); BASOPHILS PERCENT MAN 3 % (0-2); EOSINOPHILS ABSOLUTE MAN 0.55 K/mm3 (0.00-0.68); EOSINOPHILS PERCENT MAN 2 % (0-6); LYMPHOCYTES % ATYPICAL MANUAL 1 % (0-0); LYMPHOCYTES ABSOLUTE MAN 1.11 K/mm3 (0.84-5.20); LYMPHOCYTES PERCENT MAN 3 % (21-46); METAMYELOCYTE ABSOLUTE MAN 0.27 K/mm3 (0.00-0.00); METAMYELOCYTE PERCENT MAN 1 % (0-0); MONOCYTES ABSOLUTE MAN 0.83 K/mm3 (0.16-1.47); MONOCYTES PERCENT MAN 3 % (4-13); MYELOCYTE ABSOLUTE MAN 1.11 K/mm3 (0.00-0.00); MYELOCYTE PERCENT MAN 4 % (0-0); NEUTROPHILS ABSOLUTE MAN 22.82 K/mm3 (1.96-9.15); SEG NEUTROPHILS PERCENT MAN 79 % (41-73); TOTAL CELLS COUNTED 100
[2022-11-06 12:41] LABS: BLASTS PERCENT MAN 1 % (0-0)
[2022-11-06 13:10] LABS: Source, Urine Straight Cath
[2022-11-06 13:15] LABS: Appearance, Urine Clear (Clear); Bilirubin, Urine Neg (Neg); Blood, Urine Neg (Neg); Color, Urine Yellow (P-Yellow); Glucose Qualitative, Urine Neg (Neg); Ketones, Urine Neg (Neg); Leukocyte Esterase, Urine Neg (Neg); Nitrite, Urine Neg (Neg); Protein, Urine 2+ (Neg); Specific Gravity, Urine 1.015 (1.003-1.022); Urobilinogen, Urine NORM (Normal)
[2022-11-06 13:39] LABS: Bacteria Rare /hpf; Hyaline Casts 0-2 /lpf (0-2); Red Blood Cells, Urine 0-2 /hpf (0-2); Squamous Epithelial Cells Not Seen /hpf (Few); White Blood Cells, Urine 0-2 /hpf (0-5)
[2022-11-06 15:39] VITALS: BP 123/76
--- NOTE | 2022-11-06 19:46 | NUR ---
SUMMARY- PT IN STABLE CONDITION WHEN ARRIVING TO MEDICAL FLOOR. RN RECEIVED REPORT FROM COMMERCIAL COLLECTIONS SPECIALIST AT BEDSIDE. PT IS SBCasandra. AAOX4. CALM AND COOPERATIVE.
[2022-11-06 19:48] VITALS: BP 140/92
[2022-11-07] MEDS ORDERED: Vitamin D1000 UNI1 PO (00:51)
[2022-11-07] MEDS ORDERED: B-121000 MC7 PO (00:51)
[2022-11-07] MEDS ORDERED: HYDURE500 PO (00:53)
[2022-11-07 02:40] VITALS: BP 135/76
--- NOTE | 2022-11-07 04:18 | NUR ---
SHIFT SUMMERY, PT STATED HE TAKES [place] 3 X A DAY AND WAS WANTING HI NIGHT DOSE, PT NOT ABLE TO SAY WHAT THE DOSE WAS, PT ALSO WANTING TYLENOL FOR PAIN AND SOMETHING FOR SLEEPING. CALLED DR AND GOT ORDER FOR MEDS. PT MEDICATED, PT A FEW HRS LATTED STTED HE COULS NOT SLEEP AND WANTED SOME THING FOR SLEEP. REMINDED PT HE HAS BEEN GIVEN TRAZADONE, PT STATED IT DID NOT WORK WELL. PT HAS RLS SO NOT SLEEPING WELL. PT SIGIFREDO TO GET UP TO BR AND TO VID IN URINAL. PT TAKING OFF O2 AT TIMES. REQUESTED SOMETHING TO DRINK. AND NOW AT THIS TIME APPEARS TO BE RESTING POSSIBLY ASLEEP. CALL LIGHT IN REACH.
[2022-11-07 05:33] LABS: Bun/Creatinine Ratio 18.6 (12.0-20.0); Calcium, Blood 7.8 mg/dL (8.5-10.1); Creatinine, Blood 1.56 mg/dL (0.60-1.20)
[2022-11-07 07:15] VITALS: BP 139/78
--- NOTE | 2022-11-07 17:50 | NUR ---
SUMMARY- NO ACUTE EVENTS THIS SHIFT. PT IS AAOX4. CALM AND COOPERATIVE. PT IS CONTINENT AND USES URINAL. CALLS APPROPRIATELY. SBA.
[2022-11-07 19:41] VITALS: BP 146/84
--- NOTE | 2022-11-07 22:48 | NUR ---
2044 PT LYING IN BED, DENIES ANY DISCOMFORT AT THIS TIME. LE'S SLIGHTLY RED WITH DRY SKIN AND EDEMA 1+. PT DENIES PAIN BUT REQUESTED AND RECIVED TYLENOL. NO OTHER APPARENT SIGNS OF DISTRESS. CALL LIGHT IS IN REACH.
--- NOTE | 2022-11-07 22:49 | NUR ---
2230 PT SITTING ON EDGE OF BED USING URINAL. DENIES NEED FOR ANYTHING ELSE AT THIS TIME. NO APPARENT SIGNS OF DISTRESS. CALL LIGHT IS IN REACH.
--- NOTE | 2022-11-08 00:11 | NUR ---
PT LYING IN BED, EYES CLOSED, APPEARS TO BE RESTING. BREATHING IS EVEN, UNLABORED. NO APPARENT SIGNS OF DISTRESS. CALL LIGHT IS IN REACH.
--- NOTE | 2022-11-08 03:49 | NUR ---
0200 PT SITTING ON EDGE OF BED, AWAKE, USING URINAL. DENIES NEED FOR ANYTHING AT THIS TIME. NO APPARENT SIGNS OF DISTRESS. CALL LIGHT IS IN REACH.
--- NOTE | 2022-11-08 03:50 | NUR ---
PT LYING IN BED, EYES CLOSED, APPEARS TO BE RESTING. BREATHING IS EVEN, UNLABORED. NO APPARENT SIGNS OF DISTRESS. CALL LIGHT IS IN REACH.
[2022-11-08 04:07] VITALS: BP 125/67
[2022-11-08 05:25] LABS: Bun/Creatinine Ratio 18.2 (12.0-20.0); Calcium, Blood 7.8 mg/dL (8.5-10.1); Creatinine, Blood 1.59 mg/dL (0.60-1.20); Potassium, Blood 3.8 mmol/L (3.5-5.5)
--- NOTE | 2022-11-08 06:00 | NUR ---
PT IS AAO X 4 MOSTLY, PT DOES PULL HIS O2 OFF OCCASIONALLY AND THEN GETS CONFUSED. HE PULLED IT OFF LAST NIGHT AND THEN PULLED OUT HIS IV AND TOOK OFF ALL OF HIS CLOTHER. LE'S SLIGHT REDNESS, DRY SKIN AND EDEMA 1+.DENIED ANY DISCOMFORT FOR THIS SHIFT.
--- NOTE | 2022-11-08 06:02 | NUR ---
PT LYING IN BED, EYES CLOSED, APPEARS TO BE RESTING. BREATHING IS EVEN, UNLABORED. NO APPARENT SIGNS OF DISTRESS. CALL LIGHT IS IN REACH. NO OTHER CHANGES THIS SHIFT.
[2022-11-08 07:31] VITALS: BP 149/77
[2022-11-08 14:48] VITALS: BP 123/71
--- NOTE | 2022-11-08 18:40 | NUR ---
SUMMARY- PT A/O X3-4, FORGETFUL, MORE DISORIENTED THIS AM WHICH SEEMED TO CLEAR THE DAY WENT ON. USES CALL LIGHT TO MAKE NEEDS KNOWN. DIURESING. CONT TO HAVE CRACKELS IN BASES AND BLE EDEMA +2-3. PT TOLERATING FOOD AND FLUID. LIKELY DC BACK TO [facility] TOMORROW.
[2022-11-08 19:40] VITALS: BP 124/63
[2022-11-09 02:35] VITALS: BP 133/79
[2022-11-09 05:19] LABS: Creatinine, Blood 1.63 mg/dL (0.60-1.20); Magnesium, Blood 1.7 mg/dL (1.6-2.4)
[2022-11-09 07:18] VITALS: BP 119/78
[2022-11-09 09:10] VITALS: BP 120/70
--- NOTE | 2022-11-09 16:26 | NUR ---
PATIENT IS ALERT AND ORIENTED AND COOPERATIVE WITH CARE. PATIENT AMBULATES IN HIS ROOM INDEPENDENTLY. HE VOIDS IN THE BATHROOM. PATIENT SAT UP IN THE CHAIR FOR BREAKFAST. NO NEW CONCERNS THIS SHIFT. WILL CONTINUE TO MONITOR
[2022-11-09 16:31] VITALS: BP 130/71
[2022-11-09 19:07] VITALS: BP 120/60
[2022-11-10 03:54] VITALS: BP 121/68
--- NOTE | 2022-11-10 05:06 | NUR ---
PATIENT SLEPT WELL THROUGH THE NIGHT, REMAINED ORIENTED WITHOUT BEHAVIORAL ISSUES OR CONFUSION. GOOD U/O, EDEMA TO BLE IMPROVING, VSS, IND IN ROOM WITH CANE. NO ISSUES TO REPORT.
[2022-11-10 05:41] LABS: Bun/Creatinine Ratio 18.9 (12.0-20.0); Calcium, Blood 8.4 mg/dL (8.5-10.1); Creatinine, Blood 1.75 mg/dL (0.60-1.20); Potassium, Blood 3.8 mmol/L (3.5-5.5)
[2022-11-10 07:28] VITALS: BP 129/71
[2022-11-10] MEDS ORDERED: POTA10T PO (09:45)
[2022-11-10] MEDS ORDERED: FURO80 PO (09:45)
== END 2022-11-10 15:25 | disposition home or self-care (01) | DRG 291 ==
LOC: ER 11:16 → MEDS 13:06
PROVIDERS: Emergency Medicine; Internal Medicine; ADMIT Internal Medicine
DX: I13.0 Hypertensive heart and chronic kidney disease with heart failure and stage 1 through stage 4 chronic kidney disease, or unspecified chronic kidney disease (principal); I50.23 Acute on chronic systolic (congestive) heart failure; J96.01 Acute respiratory failure with hypoxia; D47.1 Chronic myeloproliferative disease; I31.39 Other pericardial effusion (noninflammatory); F03.90 Unspecified dementia, unspecified severity, without behavioral disturbance, psychotic disturbance, mood disturbance, and anxiety; I48.0 Paroxysmal atrial fibrillation; I27.20 Pulmonary hypertension, unspecified; K21.9 Gastro-esophageal reflux disease without esophagitis; E78.5 Hyperlipidemia, unspecified; F41.9 Anxiety disorder, unspecified; G62.9 Polyneuropathy, unspecified; D45 Polycythemia vera; M19.90 Unspecified osteoarthritis, unspecified site; I73.9 Peripheral vascular disease, unspecified; D63.1 Anemia in chronic kidney disease; N18.9 Chronic kidney disease, unspecified; Z98.1 Arthrodesis status; Z87.891 Personal history of nicotine dependence; Z88.8 Allergy status to other drugs, medicaments and biological substances; Z79.899 Other long term (current) drug therapy; Z79.01 Long term (current) use of anticoagulants; Z79.51 Long term (current) use of inhaled steroids; Z79.2 Long term (current) use of antibiotics
CPT/HCPCS: 36415; 71045; 80048; 80053; 81001; 83605; 83735; 83880; 84484; 85025; 87040; 93005; 93010; 93306; 94760; 94761; 96374; 99285-25; A9270; J1940

== ENCOUNTER → 2023-02-03 | Outpatient (CLI) | payer OTHER ==
[~2023-02-03] MED LIST changes: +B-121000 MC7 PO; +FURO80 PO; +POTA10T PO; +Vitamin D1000 UNI1 PO
[2023-02-03 13:40] LABS: Hematocrit 33.2 % (37.0-53.0); Hemoglobin 10.2 g/dL (13.5-17.5); Mean Corpuscular HGB 30.7 pg (26.0-34.0); Mean Corpuscular HGB Conc 30.7 g/dL (31.5-36.5); Mean Corpuscular Volume 100 fL (80-100); Mean Platelet Volume 12.6 fL (9.1-12.4); NRBC ABSOLUTE 0.12 K/mm3 (0.00-0.02); NRBC Auto 0.4 /100 WBC (0.0-0.2); Platelet Count 213 K/mm3 (150-400); RDW Coefficient Variation 19.5 % (11.7-14.2); RDW Standard Deviation 69.5 fL (35.1-46.3); Red Blood Cell Count 3.32 M/mm3 (4.30-5.90); White Blood Cell Count 29.97 K/mm3 (4.00-11.30)
[2023-02-03 14:04] LABS: Albumin, Blood 3.4 g/dL (3.4-5.0); Albumin/Globulin Ratio 0.8 (0.8-1.8); Bilirubin, Total 1.2 mg/dL (0.1-1.0); Bun/Creatinine Ratio 21.1 (12.0-20.0); Calcium, Blood 8.3 mg/dL (8.5-10.1); Creatinine, Blood 1.23 mg/dL (0.60-1.20); Potassium, Blood 4.6 mmol/L (3.5-5.5); Total Protein, Blood 7.4 g/dL (6.4-8.2)
[2023-02-03 14:39] LABS: BASOPHILS ABSOLUTE MAN 0.29 K/mm3 (0.00-0.23); BASOPHILS PERCENT MAN 1 % (0-2); EOSINOPHILS ABSOLUTE MAN 1.79 K/mm3 (0.00-0.68); EOSINOPHILS PERCENT MAN 6 % (0-6); LYMPHOCYTES ABSOLUTE MAN 1.79 K/mm3 (0.84-5.20); LYMPHOCYTES PERCENT MAN 6 % (21-46); MONOCYTES ABSOLUTE MAN 0.89 K/mm3 (0.16-1.47); MONOCYTES PERCENT MAN 3 % (4-13); MYELOCYTE ABSOLUTE MAN 0.59 K/mm3 (0.00-0.00); MYELOCYTE PERCENT MAN 2 % (0-0); NEUTROPHILS ABSOLUTE MAN 24.57 K/mm3 (1.96-9.15); SEG NEUTROPHILS PERCENT MAN 82 % (41-73); TOTAL CELLS COUNTED 100
== END | disposition home or self-care (01) ==
LOC: LAB SHORT 12:45 → LAB 12:45
PROVIDERS: Nurse Practitioner
DX: D45 Polycythemia vera (principal); D72.829 Elevated white blood cell count, unspecified; R89.9 Unspecified abnormal finding in specimens from other organs, systems and tissues
CPT/HCPCS: 80053; 85007; 85027

== ENCOUNTER 2023-08-06 09:28 | Inpatient (IN) | payer OTHER ==
[~2023-08-06] VITALS: Ht 185.4 cm; Wt 89.8 kg
[~2023-08-06 09:28] MED LIST changes: +FURO40 PO; -FURO80 PO
[2023-08-06] MEDS ORDERED: Morphine Sulfate 10 MG/ML 1MLSYR IV PRN (09:40)
[2023-08-06] MEDS ORDERED: CefTRIAXone Sodium 1,000 MG in NS 50 ML IV ONE (09:45)
[2023-08-06 10:03] LABS: Hematocrit 29.6 % (37.0-53.0); Hemoglobin 8.8 g/dL (13.5-17.5); Mean Corpuscular HGB 25.7 pg (26.0-34.0); Mean Corpuscular HGB Conc 29.7 g/dL (31.5-36.5); Mean Corpuscular Volume 87 fL (80-100); NRBC ABSOLUTE 0.08 K/mm3 (0.00-0.02); NRBC Auto 0.2 /100 WBC (0.0-0.2); Platelet Count 87 K/mm3 (150-400); RDW Coefficient Variation 19.8 % (11.7-14.2); RDW Standard Deviation 59.7 fL (35.1-46.3); Red Blood Cell Count 3.42 M/mm3 (4.30-5.90); White Blood Cell Count 35.05 K/mm3 (4.00-11.30)
[2023-08-06 10:22] LABS: BAND PERCENT MAN 1 % (0-8); BASOPHILS PERCENT MAN 2 % (0-2); EOSINOPHILS ABSOLUTE MAN 0.35 K/mm3 (0.00-0.68); EOSINOPHILS PERCENT MAN 1 % (0-6); MONOCYTES PERCENT MAN 2 % (4-13); MYELOCYTE ABSOLUTE MAN 0.35 K/mm3 (0.00-0.00); MYELOCYTE PERCENT MAN 1 % (0-0); NEUTROPHILS ABSOLUTE MAN 32.94 K/mm3 (1.96-9.15); SEG NEUTROPHILS PERCENT MAN 93 % (41-73); TOTAL CELLS COUNTED 100
[2023-08-06 10:29] LABS: Albumin/Globulin Ratio 0.8 (0.8-1.8); Calcium, Blood 7.9 mg/dL (8.5-10.1); Creatinine, Blood 1.26 mg/dL (0.60-1.20); Globulin, Blood 3.9 g/dL (2.2-4.0); Potassium, Blood 4.4 mmol/L (3.5-5.5); Total Protein, Blood 6.9 g/dL (6.4-8.2)
[2023-08-06] MEDS ORDERED: Acetaminophen 325 MG TABLET PO PRN (11:10)
[2023-08-06] MEDS ORDERED: FLU VACC QS2023-24(6MOS UP)/PF 60 MCG/0.5 ML SYRINGE IM ONE (11:10)
[2023-08-06] MEDS ORDERED: CeFAZolin Sodium 1,000 MG in NS 50 ML IV SCH (12:00)
[2023-08-06] MEDS ORDERED: FentaNYL Citrate 50 MCG/ML 2 ML Injection IV PRN (12:45)
--- NOTE | 2023-08-06 15:11 | NUR ---
1448 TO FLOOR, REPORT FROM TONI ERICKSON RN, PATIENT MEDICATED FOR PAIN PRIOR TO COMING TO THE FLOOR
[2023-08-06 15:31] VITALS: BP 127/89
[2023-08-06] MEDS ORDERED: ESCI10 PO (16:00)
[2023-08-06] MEDS ORDERED: Omeprazole 20 MG CapCR PO SCH (16:30)
[2023-08-06 16:53] LABS: Source, Urine Foley catheter
[2023-08-06 17:00] LABS: Appearance, Urine Clear (Clear); Bilirubin, Urine Neg (Neg); Blood, Urine 1+ (Neg); Color, Urine Yellow (P-Yellow); Glucose Qualitative, Urine Neg (Neg); Ketones, Urine Neg (Neg); Leukocyte Esterase, Urine Neg (Neg); Nitrite, Urine Neg (Neg); Protein, Urine Neg (Neg); Specific Gravity, Urine 1.015 (1.003-1.022); Urobilinogen, Urine NORM (Normal)
[2023-08-06] MEDS ORDERED: Carvedilol 25 MG Tab PO SCH (17:00)
[2023-08-06 17:08] LABS: Red Blood Cells, Urine 0-2 /hpf (0-2); White Blood Cells, Urine 0-2 /hpf (0-5)
[2023-08-06 17:09] LABS: Bacteria Rare /hpf; Squamous Epithelial Cells Not Seen /hpf (Few)
--- NOTE | 2023-08-06 17:53 | NUR ---
pt seen in ER, needs admission for wound evaulation and treatment. [facility]. Son is poa. Will try again to contact him and see if any polst at [facility]. kps score is 30%
--- NOTE | 2023-08-06 18:45 | NUR ---
VERY FORGETFUL, POOR SHORT TERM MEMORY, EDUCATED DIRECTOR OF COLLECTIONS AND ARCHIVES LIGHT WILL NOT USE IT, IMPULSIVE, BED ALARM ON. PRELIMINARY ARTERIAL US + RIGHT FEMEROL ARTERY AND POPITEAL OCCLUSION. AVERY PLACED, BPH, 16 COUDA USED, PATIENT CONTINUING TO TRY TO BM EVERY 30 MINUTES. PALLIATIVE CARE CONSULTED AND ROUNDED ON PATIENT IN ER, MEDICATED FOR PAIN WITH PRN FENTANYL, REPORTED IMPULSIVE FORGETFULNESS AND UNABLE TO EDUCATE TO TABLEAU ARCHITECT, POSSIBLE TRANSFER TO SCU, BED ALARM ON, CALL LIGHT WITH IN REACH, WILL RELAY TO PM RN
[2023-08-06 20:04] VITALS: BP 106/53
[2023-08-06] MEDS ORDERED: Gabapentin 300 MG Cap PO SCH (21:00)
[2023-08-06] MEDS ORDERED: Calcium Carbonate 500 MG Tab Chew PO SCH (21:00)
[2023-08-06] MEDS ORDERED: TraZODone HCl 50 MG Tab PO SCH (21:00)
[2023-08-06] MEDS ORDERED: Tamsulosin HCl 0.4 MG Cap PO SCH (21:00)
[2023-08-06] MEDS ORDERED: Lactobacil 2-S.Thermo-Bifido 1 1 Cap PO SCH (21:00)
[2023-08-07 02:37] VITALS: BP 115/67
--- NOTE | 2023-08-07 04:58 | NUR ---
SHIFT SUMMARY PT A&O X3. PT DOES AWAKE CONFUSED AND HAS SOME SHORT TERM MEMORY IMPAIRMENTS. AVERY PATENT AND DRAINING DARK YELLOW URINE. PT COMPLAINS OF RIGHT LEG PAIN. MEDICATED PER EMAR, ELEVATED ON PILLOWS, AND REPOSITIONED NEEDED. CURRENTLY ON 3L O2 VIA NC, SATS ABOVE 92%. BED KEPT IN LOWEST POSITION WITH CALL LIGHT IN REACH. BED ALARM ON FOR SAFETY.
[2023-08-07] MEDS ORDERED: Levothyroxine Sodium 0.05 MG Tab PO SCH (06:00)
[2023-08-07 06:08] LABS: Hematocrit 33.6 % (37.0-53.0); Hemoglobin 9.6 g/dL (13.5-17.5); Mean Corpuscular HGB 25.3 pg (26.0-34.0); Mean Corpuscular HGB Conc 28.6 g/dL (31.5-36.5); Mean Corpuscular Volume 88 fL (80-100); NRBC ABSOLUTE 0.09 K/mm3 (0.00-0.02); NRBC Auto 0.2 /100 WBC (0.0-0.2); Platelet Count 85 K/mm3 (150-400); RDW Coefficient Variation 19.9 % (11.7-14.2); RDW Standard Deviation 62.4 fL (35.1-46.3); White Blood Cell Count 41.87 K/mm3 (4.00-11.30)
[2023-08-07 06:45] LABS: Calcium, Blood 7.8 mg/dL (8.5-10.1); Creatinine, Blood 1.28 mg/dL (0.60-1.20); Potassium, Blood 4.5 mmol/L (3.5-5.5)
[2023-08-07 06:56] LABS: BASOPHILS ABSOLUTE MAN 0.41 K/mm3 (0.00-0.23); BASOPHILS PERCENT MAN 1 % (0-2); EOSINOPHILS PERCENT MAN 0 % (0-6); LYMPHOCYTES ABSOLUTE MAN 1.25 K/mm3 (0.84-5.20); LYMPHOCYTES PERCENT MAN 3 % (21-46); METAMYELOCYTE ABSOLUTE MAN 0.41 K/mm3 (0.00-0.00); METAMYELOCYTE PERCENT MAN 1 % (0-0); MONOCYTES ABSOLUTE MAN 2.09 K/mm3 (0.16-1.47); MONOCYTES PERCENT MAN 5 % (4-13); NEUTROPHILS ABSOLUTE MAN 37.68 K/mm3 (1.96-9.15); SEG NEUTROPHILS PERCENT MAN 90 % (41-73); TOTAL CELLS COUNTED 100
[2023-08-07 07:41] VITALS: BP 130/72
[2023-08-07] MEDS ORDERED: Enoxaparin 40 MG/0.4 ML SYR SC SCH (09:00)
[2023-08-07] MEDS ORDERED: Cyanocobalamin 500 MCG Tab PO SCH (09:00)
[2023-08-07] MEDS ORDERED: Multivitamins 1 Tab PO SCH (09:00)
[2023-08-07] MEDS ORDERED: Donepezil HCl 5 MG Tab PO SCH (09:00)
[2023-08-07] MEDS ORDERED: Citalopram Hydrobromide 10 MG TAB PO SCH (09:00)
[2023-08-07] MEDS ORDERED: Furosemide 10 MG/ML 4ML Vial IV SCH (09:00)
[2023-08-07] MEDS ORDERED: Potassium Chloride 10 Meq Tablet SA PO SCH (09:00)
[2023-08-07] MEDS ORDERED: Cholecalciferol 1000 Unit Tablet (=25MCG) PO SCH (09:00)
[2023-08-07] MEDS ORDERED: Folic Acid 1 MG TAB PO SCH (09:00)
[2023-08-07 09:15] LABS: Anti-Xa UFH, PHA Monitoring <0.10 IU/mL; International Normalized Ratio 1.34; Prothrombin Time Results 13.8 Sec (9.7-11.5)
[2023-08-07] MEDS ORDERED: Dose Adjust by Pharmacy XX STA ×2 (09:20→16:38)
[2023-08-07] MEDS ORDERED: Heparin Sodium,Porcine/0.5 NS 500 ML IV SCH (09:25)
--- NOTE | 2023-08-07 09:29 | NUR ---
DR LARKIN ROUNDING ON PATIENTNOW
--- NOTE | 2023-08-07 10:44 | NUR ---
DR LARKIN ROUNDED, STARTED ON A EPARIN GTT, ACTIVITY CLARIFIED TOLERATED WITH ASSIST, TWO IVS PLACED, PATIENT IMPULSIVE AT TIMES, BED ALARM ON, CONFUSED AND FORGETFUL AT TIMES, CALL LIGHT WITH IN REACH
--- NOTE | 2023-08-07 11:01 | NUR ---
FAMILY IN VISITING, PATIENT VERY IMPULSIVE AND CONFUSED THIS AM, PATIET KEEPS TRYING TO GET OOB AND UNABLE TO REDIRECT
[2023-08-07] MEDS ORDERED: Heparin Sodium 5000 Units/ML 1ML MDV IV ONE (16:40)
[2023-08-07] MEDS ORDERED: Rivaroxaban 10 MG Tab PO SCH (17:00)
[2023-08-07 17:20] VITALS: BP 132/69
--- NOTE | 2023-08-07 17:27 | NUR ---
brief assessment for pain or symptoms. Having some urinary retention. pt resting well. Awaiting plan of care form interventional radiology. Will review plan for intermission coordinator goals and prognositication. If intervention will monitor reperfussion pain closely.
--- NOTE | 2023-08-07 18:49 | NUR ---
ALERT AND OREINTED TO SELF, CIRCUMSTANCES, PLACE, PERSON. CALL LIGHT WITH IN REACH, CAREGIVER RAMIREZ CALLED TO CHECK ON PATIENT, HEPARINN GTT START, GTT INCREASED TO 29.9 ML/HR, MEDICATED FOR PAIN WITH FENTANYL, CLARIFIED ACTIVITY STATUS, ONE PERSON ASSIST TO BSC TOLERATED, CALLS FOR HELP, FORGETFUL WITH IVS AND IV LINES, 2 NEW IVS IN, HEPARIN TO LEFT FORARM, FERNANDO ARREDONDO, WILL RELAY TO PM RN, CALL LIGHT WITH IN REACH
[2023-08-07 21:02] VITALS: BP 109/60
[2023-08-08 02:14] VITALS: BP 123/68
[2023-08-08 05:12] LABS: Hematocrit 27.5 % (37.0-53.0); Mean Corpuscular HGB 25.3 pg (26.0-34.0); Mean Corpuscular HGB Conc 29.1 g/dL (31.5-36.5); Mean Corpuscular Volume 87 fL (80-100); NRBC ABSOLUTE 0.11 K/mm3 (0.00-0.02); NRBC Auto 0.3 /100 WBC (0.0-0.2); Platelet Count 116 K/mm3 (150-400); RDW Coefficient Variation 19.7 % (11.7-14.2); RDW Standard Deviation 61.4 fL (35.1-46.3); Red Blood Cell Count 3.16 M/mm3 (4.30-5.90); White Blood Cell Count 37.09 K/mm3 (4.00-11.30)
[2023-08-08] MEDS ORDERED: Dose Adjust by Pharmacy XX STA ×3 (05:28→18:34)
[2023-08-08 05:47] LABS: BAND PERCENT MAN 6 % (0-8); BASOPHILS PERCENT MAN 0 % (0-2); EOSINOPHILS ABSOLUTE MAN 0.74 K/mm3 (0.00-0.68); EOSINOPHILS PERCENT MAN 2 % (0-6); LYMPHOCYTES % ATYPICAL MANUAL 1 % (0-0); LYMPHOCYTES ABSOLUTE MAN 1.48 K/mm3 (0.84-5.20); LYMPHOCYTES PERCENT MAN 3 % (21-46); MONOCYTES ABSOLUTE MAN 1.11 K/mm3 (0.16-1.47); MONOCYTES PERCENT MAN 3 % (4-13); MYELOCYTE ABSOLUTE MAN 0.37 K/mm3 (0.00-0.00); MYELOCYTE PERCENT MAN 1 % (0-0); NEUTROPHILS ABSOLUTE MAN 33.38 K/mm3 (1.96-9.15); SEG NEUTROPHILS PERCENT MAN 84 % (41-73); TOTAL CELLS COUNTED 100
[2023-08-08 05:58] LABS: Calcium, Blood 7.6 mg/dL (8.5-10.1); Creatinine, Blood 1.59 mg/dL (0.60-1.20); Potassium, Blood 4.2 mmol/L (3.5-5.5)
[2023-08-08 07:20] VITALS: BP 128/63
--- NOTE | 2023-08-08 07:45 | NUR ---
SHIFT SUMMARY PT A&O X3, CONFUSED AT TIMES. WILL ATTEMPT TO PULL AT LINES WHEN CONFUSED. RIGHT LEG SWOLLEN, RED, AND WARM. PT COMPLAINED OF PAIN TO RIGHT LEG, MEDICATED PER EMAR. PT IS CURRENTLY ON 4L O2 VIA NC. WAS ON 3L O2 BUT WAS DESATING. TURNED UP O2 AND SATS HAVE BEEN OVER 92%. PT IS CURRENTLY ON HEPARIN GTT AT 18 UNITS/KG/HR. RATE 37.1. AVERY IN PLACE PATENT AND DRAINING. BED IN LOWEST POSITION WITH CALL LIGHT WITHIN REACH.
[2023-08-08] MEDS ORDERED: Polyethylene Glycol 3350 17 gm PO PRN (11:10)
[2023-08-08 15:55] VITALS: BP 108/70
[2023-08-08] MEDS ORDERED: HYDROXYurea 500 MG Cap PO SCH (16:15)
--- NOTE | 2023-08-08 18:02 | NUR ---
SUMMARY- PT MEDICATED X1 FOR PAIN THIS SHIFT. PT AAOX3-4. X1 ASSIST TO CHAIR. DR. RODRIGUEZ ASSESSED PT THIS SHIFT. PT NPO AT 0000 FOR POTENTIAL SURGERY WITH IR TOMORROW.
[2023-08-08 19:42] VITALS: BP 127/79
[2023-08-08] MEDS ORDERED: CeFAZolin Sodium 1,000 MG in NS 50 ML IV SCH (20:00)
[2023-08-08] MEDS ORDERED: Docusate Sodium 100 MG Cap PO SCH (21:00)
[2023-08-09] VITALS (11 sets, daily range): BP systolic 90–116; BP diastolic 54–82
[2023-08-09 05:45] LABS: Hemoglobin 8.1 g/dL (13.5-17.5); Mean Corpuscular HGB 25.2 pg (26.0-34.0); Mean Corpuscular HGB Conc 27.9 g/dL (31.5-36.5); Mean Corpuscular Volume 90 fL (80-100); NRBC ABSOLUTE 0.08 K/mm3 (0.00-0.02); NRBC Auto 0.2 /100 WBC (0.0-0.2); Platelet Count 129 K/mm3 (150-400); RDW Coefficient Variation 19.9 % (11.7-14.2); RDW Standard Deviation 65.1 fL (35.1-46.3); Red Blood Cell Count 3.21 M/mm3 (4.30-5.90)
[2023-08-09 06:04] LABS: Mean Platelet Volume 12.9 fL (9.1-12.4)
[2023-08-09 06:55] LABS: Bun/Creatinine Ratio 23.4 (12.0-20.0); Calcium, Blood 7.6 mg/dL (8.5-10.1); Creatinine, Blood 1.75 mg/dL (0.60-1.20)
[2023-08-09 07:00] LABS: BAND PERCENT MAN 1 % (0-8); BASOPHILS ABSOLUTE MAN 0.37 K/mm3 (0.00-0.23); BASOPHILS PERCENT MAN 1 % (0-2); EOSINOPHILS ABSOLUTE MAN 0.74 K/mm3 (0.00-0.68); EOSINOPHILS PERCENT MAN 2 % (0-6); LYMPHOCYTES ABSOLUTE MAN 2.59 K/mm3 (0.84-5.20); LYMPHOCYTES PERCENT MAN 7 % (21-46); METAMYELOCYTE ABSOLUTE MAN 0.37 K/mm3 (0.00-0.00); METAMYELOCYTE PERCENT MAN 1 % (0-0); MONOCYTES ABSOLUTE MAN 1.48 K/mm3 (0.16-1.47); MONOCYTES PERCENT MAN 4 % (4-13); MYELOCYTE ABSOLUTE MAN 0.37 K/mm3 (0.00-0.00); MYELOCYTE PERCENT MAN 1 % (0-0); NEUTROPHILS ABSOLUTE MAN 31.16 K/mm3 (1.96-9.15); SEG NEUTROPHILS PERCENT MAN 83 % (41-73); TOTAL CELLS COUNTED 100
[2023-08-09] MEDS ORDERED: NS 1,000 ML IV ONE ×2 (11:38→12:52)
[2023-08-09] MEDS ORDERED: Heparin Sodium 1000 Units/ML 10ML MDV ONE ×2 (11:38→12:52)
--- NOTE | 2023-08-09 12:39 | NUR ---
[facility] HERE TO TAKE PT TO PROCEDURE. CARMEN AVERY PT WHEELED OUT AT 1240
[2023-08-09] MEDS ORDERED: FentaNYL Citrate 50 MCG/ML 2 ML Injection ONE (12:52)
[2023-08-09] MEDS ORDERED: Midazolam HCl 1MG / ML 2ML Vial ONE (12:52)
[2023-08-09] MEDS ORDERED: NS 250 ML IV ONE (13:00)
[2023-08-09] MEDS ORDERED: NS 100 ML IV ONE (13:00)
--- NOTE | 2023-08-09 14:33 | NUR ---
REPORT CALLED TO RICHARD VALDEZ PLATFORM LOADER.
--- NOTE | 2023-08-09 18:10 | NUR ---
SHIFT SUMMARY; ASSUMED CARE FOLLOWING REVASC. LEFT GROIN SITE WITH ANGIO SEAL. RECOVERED PER ORDERS. A/A/OX3, VSS, EDUCATED ON BEDREST, WITH MINIMAL MOVEMENT OF LEG PER ORDERS. RIGHT. LEG PEDAL PULSE PALPABLE BY DOPPLER, CAP REFILL 4 SEC, RED AND WARM FROM MID BELOW KNEE TO FOOT. MEDICATED FOR PAIN PER EMAR. WILL CONTINUE TO MONITOR AND TREAT UNTIL CHANGE OF SHIFT.
--- NOTE | 2023-08-09 21:04 | NUR ---
ASSUMPTION OF CARE: AFTER RECEIVING REPORT FROM GREGG BLEDSOE, THIS RN ASSUMED CARE AT APPROX 1915. DURING INITIAL ENCOUNTER, PATIENT ALERT, WATCHING TV IN BED. IS ALERT AND ORIENTED X4. LIVES IN AN ADULT [facility]ACILITY, CAN BE FORGETFUL AT TIMES. IS EASILY REORIENTABLE TO CURRENT SITUATION, USE OF MEDICAL DEVICES. BED ALARM IN PLACE. TELEMETRY SHOWING AFIB 80s. BP SOFT, SBP 90s-100s. MAP >65. DENIES CHEST PAIN, PRESSURE. S/P REVASC OF RLE. L GROIN SITE WNL. SOFT, NONTENDER. NO HEMATOMA NOTED. TEGADERM DRESSING C/D/I. +2 EDEMA, REDNESS TO RLE. FAINT/THREADY PULSES. EXPERIENCES EPISODES OF SHARP, SHOOTING PAIN TO EXTREMITY. MEDICATED PER EMAR WITH IV FENTANYL AND PO TYLENOL. IS CURRENTLY ON BASELINE 3-4L VIA NASAL CANNULA, SATs >90%. DENIES SHORTNESS OF BREATH AT REST. RESPIRATIONS EVEN, UNLABORED. IS ON LIMITED MOBILITY, BEDREST PRECAUTIONS DUE TO REVASC PROCEDURE. IS ABLE TO REPOSITION HIMSELF IN BED WITH LITTLE TO NO ASSIST FROM STAFF. AVERY CATHETER IN PLACE FOR RETENTION, DRAINING YELLOW URINE TO GRAVITY. ATTENDS IN PLACE. CALL LIGHT IN REACH.
[2023-08-10 03:12] VITALS: BP 105/62
[2023-08-10 03:19] LABS: Hematocrit 26.7 % (37.0-53.0); Hemoglobin 7.6 g/dL (13.5-17.5); Mean Corpuscular HGB Conc 28.5 g/dL (31.5-36.5); Mean Corpuscular Volume 88 fL (80-100); NRBC ABSOLUTE 0.06 K/mm3 (0.00-0.02); NRBC Auto 0.2 /100 WBC (0.0-0.2); Platelet Count 152 K/mm3 (150-400); RDW Coefficient Variation 19.9 % (11.7-14.2); RDW Standard Deviation 63.2 fL (35.1-46.3); Red Blood Cell Count 3.04 M/mm3 (4.30-5.90); White Blood Cell Count 27.35 K/mm3 (4.00-11.30)
[2023-08-10] MEDS ORDERED: Dose Adjust by Pharmacy XX STA (04:57)
[2023-08-10] MEDS ORDERED: Heparin Sodium 5000 Units/ML 1ML MDV IV ONE (05:00)
[2023-08-10 05:35] LABS: BAND PERCENT MAN 1 % (0-8); BASOPHILS PERCENT MAN 0 % (0-2); EOSINOPHILS ABSOLUTE MAN 0.27 K/mm3 (0.00-0.68); EOSINOPHILS PERCENT MAN 1 % (0-6); LYMPHOCYTES ABSOLUTE MAN 0.54 K/mm3 (0.84-5.20); LYMPHOCYTES PERCENT MAN 2 % (21-46); METAMYELOCYTE ABSOLUTE MAN 0.27 K/mm3 (0.00-0.00); METAMYELOCYTE PERCENT MAN 1 % (0-0); MONOCYTES ABSOLUTE MAN 0.27 K/mm3 (0.16-1.47); MONOCYTES PERCENT MAN 1 % (4-13); MYELOCYTE ABSOLUTE MAN 0.82 K/mm3 (0.00-0.00); MYELOCYTE PERCENT MAN 3 % (0-0); NEUTROPHILS ABSOLUTE MAN 25.16 K/mm3 (1.96-9.15); SEG NEUTROPHILS PERCENT MAN 91 % (41-73); TOTAL CELLS COUNTED 100
--- NOTE | 2023-08-10 05:47 | NUR ---
SHIFT SUMMARY NO ACUTE CHANGES SINCE ASSUMPTION OF CARE. PATIENT SLEPT INTERMITTENTLY THROUGHOUT SHIFT. EXPERIENCES EPISODES OF INCREASED CONFUSION, ESPECIALLY UPON WAKING. EASILY ABLE TO REORIENT. TELEMETRY SHOWING AFIB 70s-90s. BP STABLE, SBP 90s-110s. MAP >65. L GROIN SITE REMAINS WNL. SOFT, NONTENDER. NO HEMATOMA NOTED. TEGADERM DRESSING C/D/I. MANAGING RLE PAIN PER EMAR. HEPARIN GTT INFUSING PER EMAR. AVERY CATHETER IN PLACE, PATENT, DRAINING YELLOW URINE TO GRAVITY. BM THIS SHIFT. PATIENT REPOSITIONING HIMSELF INDEPENDENTLY IN BED. CALL LIGHT IN REACH. BED ALARM ON. WILL REPORT TO ONCOMING RN.
[2023-08-10 07:55] VITALS: BP 135/78
[2023-08-10] MEDS ORDERED: HYDROcodone 5-APAP 325 TAB PO PRN (09:00)
[2023-08-10] MEDS ORDERED: Rivaroxaban 10 MG Tab PO SCH (09:00)
[2023-08-10 11:27] VITALS: BP 126/66
[2023-08-10 12:46] VITALS: BP 174/81
--- NOTE | 2023-08-10 17:39 | NUR ---
SHIFT SUMMARY; ASSUMED CARE AT 0700. A/A/OX3. LEFT GROIN SITE WITH ANGIO SEAL, C/D/I. SITE NON BRUISED, FLAT AND SOFT. RIGHT LEG RED FROM BELOW KNEE TO FOOT, CAP REFILL >3, PEDAL PULSE FAINT, UNCHANGED FROM PREVIOUS SHIFT. USES BSC DURING SHIFT WITH ASSISTANCE, AVERY IN PLACE FOR RETENTION DRAINING CLEAR YELLOW URINE TO GRAVITY. MEDS PER EMAR. STATUS CHANGED TO MEDICAL TODAY, WILL CONTINUE TO MONITOR AND TREAT UNTIL CHANGE OF SHIFT.
[2023-08-10 19:41] VITALS: BP 109/58
--- NOTE | 2023-08-10 20:58 | NUR ---
ASSUMPTION OF CARE: AFTER RECEIVING REPORT FROM GREGG BLEDSOE, THIS RN ASSUMED CARE AT APPROX 1915. DURING INITIAL ENCOUNTER, PATIENT UP USING BEDSIDE COMMODE. IS A ONE PERSON ASSIST WITH FWW, GAITBELT. ANSWERS ORIENTATION QUESTIONS APPROPRIATELY. IS FORGETFUL, USES CALL LIGHT FREQUENTLY. IS MEDICAL STATUS WITH NO TELEMETRY. BP STABLE, SBP 100s. MAP >65. DENIES CHEST PAIN, PRESSURE. REVASC OF RLE 08/09/23. L GROIN SITE WNL. SOFT, NONTENDER. NO HEMATOMA NOTED. TEGADERM DRESSING C/D/I. MANAGING BLE/CALF PAIN PER EMAR. IS ON BASELINE 3L VIA NASAL CANNULA, SATs 88-94%. DENIES SHORTNESS OF BREATH AT REST. RESPIRATIONS EVEN, UNLABORED. AVERY CATHETER IN PLACE, DRAINING YELLOW URINE TO GRAVITY. CALL LIGHT IN REACH. BED ALARM ON.
--- NOTE | 2023-08-10 21:17 | NUR ---
PATIENT REPORTING DIFFICULTY SLEEPING, DESPITE HOME DOSE OF 25MG TRAZADONE ADMINISTERED PER EMAR. PATIENT REPORTING THAT HE STILL EXPERIENCES DIFFICULTY SLEEPING AT HOME WITH DOSE, AND HE HAD DISCUSSED WITH HIS PCP ABOUT POSSIBLY INCREASING DOSE FROM 25MG TO 50MG. THIS RN CONTACTED MD. RECEIVED NEW ORDER FOR DOSE INCREASE TO 50MG. THIS RN TO ADMINISTER ADDITIONAL 25MG PER EMAR TO MATCH NEW ORDERED DOSE.
[2023-08-10] MEDS ORDERED: TraZODone HCl 50 MG Tab PO ONE (21:40)
[2023-08-11 02:55] VITALS: BP 114/64
[2023-08-11 02:56] VITALS: BP 114/64
[2023-08-11 04:00] LABS: BASOPHILS ABSOLUTE AUTO 0.21 K/mm3 (0.00-0.23); BASOPHILS PERCENT AUTO 1 % (0-2); EOSINOPHILS ABSOLUTE AUTO 0.64 K/mm3 (0.00-0.68); EOSINOPHILS PERCENT AUTO 2 % (0-6); Hematocrit 27.2 % (37.0-53.0); Hemoglobin 7.8 g/dL (13.5-17.5); IMMATURE GRAN ABSOLUTE AUTO 1.49 K/mm3 (0.00-0.10); IMMATURE GRAN PERCENT AUTO 5 % (0-1); LYMPHOCYTES ABSOLUTE AUTO 0.77 K/mm3 (0.84-5.20); LYMPHOCYTES PERCENT AUTO 3 % (21-46); MONOCYTES ABSOLUTE AUTO 1.89 K/mm3 (0.16-1.47); MONOCYTES PERCENT AUTO 6 % (4-13); Mean Corpuscular HGB 25.5 pg (26.0-34.0); Mean Corpuscular HGB Conc 28.7 g/dL (31.5-36.5); Mean Corpuscular Volume 89 fL (80-100); NEUTROPHILS ABSOLUTE AUTO 24.33 K/mm3 (1.96-9.15); NEUTROPHILS PERCENT AUTO 83 % (41-73); NRBC ABSOLUTE 0.06 K/mm3 (0.00-0.02); NRBC Auto 0.2 /100 WBC (0.0-0.2); Platelet Count 177 K/mm3 (150-400); RDW Coefficient Variation 19.7 % (11.7-14.2); RDW Standard Deviation 62.9 fL (35.1-46.3); Red Blood Cell Count 3.06 M/mm3 (4.30-5.90); White Blood Cell Count 29.33 K/mm3 (4.00-11.30)
[2023-08-11 04:08] LABS: Mean Platelet Volume 12.5 fL (9.1-12.4)
[2023-08-11 04:24] LABS: Albumin, Blood 2.5 g/dL (3.4-5.0); Albumin/Globulin Ratio 0.7 (0.8-1.8); Bilirubin, Total 0.4 mg/dL (0.1-1.0); Calcium, Blood 7.6 mg/dL (8.5-10.1); Creatinine, Blood 1.84 mg/dL (0.60-1.20); Globulin, Blood 3.8 g/dL (2.2-4.0); Magnesium, Blood 1.6 mg/dL (1.6-2.4); Potassium, Blood 4.4 mmol/L (3.5-5.5); Total Protein, Blood 6.3 g/dL (6.4-8.2)
--- NOTE | 2023-08-11 04:32 | NUR ---
SHIFT SUMMARY: NO ACUTE CHANGES SINCE ASSUMPTION OF CARE NOTE. DESPITE DOSE INCREASE OF TRAZADONE, PATIENT DID EXPERIENCE DIFFICULTY WITH MAINTAINING SLEEP. REMAINS MEDICAL STATUS WITHOUT TELEMETRY. BP STABLE, SBP 100s. MAP >65. L GROIN SITE REMAINS WNL. SOFT, NONTENDER. NO HEMATOMA NOTED. TEGADERM DRESSING C/D/I. MANAGING RLE PAIN PER EMAR. REMAINS ON BASELINE 3L VIA NASAL CANNULA, SATs >90%. RESPIRATIONS EVEN, UNLABORED. AVERY CATHETER REMAINS PATENT, DRAINING YELLOW URINE TO GRAVITY. X1 BM THIS SHIFT. UP TO BEDSIDE COMMODE WITH ONE PERSON ASSIST WITH FWW, GAIT BELT. CALL LIGHT IN REACH. BED ALARM ON. WILL REPORT TO ONCOMING RN.
[2023-08-11] MEDS ORDERED: Furosemide 40 MG Tab PO SCH (09:00)
[2023-08-11] MEDS ORDERED: Cephalexin Monohydrate 500 MG Cap PO SCH (14:00)
[2023-08-11 16:35] VITALS: BP 118/66
--- NOTE | 2023-08-11 17:35 | NUR ---
SHIFT SUMMARY; ASSUMED CARE AT 0700. A/A/OX3. LEFT GROIN SITE WITH AQUACEL C/D/I. RIGHT LOWER LEG CELLULITIS UNCHANGED. FAINT RIGHT PEDAL PULSE. WORKED WITH PT/OT. UP TO BSC WITH 1 PERSON ASSIST. CHRONIC AVERY IN PLACE DRAINING TO GRAVITY. 3L 02 VIA NC WHICH IS BASELINE. VSS, WILL CONTINUE TO MONITOR AND TREAT UNTIL CHANGE OF SHIFT.
[2023-08-11 20:46] VITALS: BP 94/65
[2023-08-11] MEDS ORDERED: TraZODone HCl 50 MG Tab PO SCH (21:00)
[2023-08-12 03:31] VITALS: BP 116/75
--- NOTE | 2023-08-12 04:28 | NUR ---
SHIFT SUMMARY NO ACUTE CHANGES OVERNIGHT. VSS. ON 3L VIA NC, WHICH IS BASELINE FOR PATIENT. PT IS ABLE TO REPOSITION SELF INDEPENDENTLY BUT NEEDS ENCOURAGEMENT TO MANAGE ADL'S WITHOUT ASSISTANCE FROM STAFF. FORGETFUL AT TIMES BUT OTHERWISE ANSWERS ALL QUESTIONS APPROPRIATELY. RLE CONTINUES TO BE RED/WARM TO TOUCH; FAINT PULSE NOTED. AVERY CATHETER PATENT AND DRAINING TO GRAVITY. BED IN LOWEST POSITION AND CALL LIGHT WITHIN REACH. THIS RN WILL REPORT TO ONCOMING DAYSHIFT RN.
[2023-08-12 07:28] VITALS: BP 110/65
[2023-08-12] MEDS ORDERED: Cephalexin500 M1 PO (13:20)
[2023-08-12 15:07] VITALS: BP 118/66
--- NOTE | 2023-08-12 16:52 | NUR ---
PT DISCHARGED AT 1640. [facility]. HIS BELONGINGS WERE SENT WITH HIM, IV WAS D/C'D BY THE MEMORY CARE PROGRAM RESIDENT. I WENT OVER D/C INSTRUCTIONS WITH THE PT AND ANSWERED ALL QUESTIONS W/ HIM. HIS HARD SCRIPT FOR [facility] WAS GIVEN TO HIM IN THE DISCHARGE PACKET. HE VERBALIZED UNDERSTANDING JAMES THE HAD AN APT IN THE [facility]OUND [facility] AT 11:30 AND THAT HE NEEDS TO SET UP AN APT WITH HIS PCP.
== END 2023-08-12 16:51 | disposition home health service (06) | DRG 871 ==
LOC: ER 09:28 → MEDS 12:43 → PCU 12:43 → MEDS 14:54 → PCU 08-09 14:11
PROVIDERS: Emergency Medicine; Student in an Organized Health Care Education/Training Program; ADMIT Family Medicine
PROC: 3E03329 Introduction of Other Anti-infective into Peripheral Vein, Percutaneous Approach (ICD-10-PCS; 2023-08-06)
PROC: B410ZZZ Fluoroscopy of Abdominal Aorta (ICD-10-PCS; principal; 2023-08-09)
PROC: B41FZZZ Fluoroscopy of Right Lower Extremity Arteries (ICD-10-PCS; 2023-08-09)
DX: A41.9 Sepsis, unspecified organism (principal); I50.23 Acute on chronic systolic (congestive) heart failure; L03.115 Cellulitis of right lower limb; E87.1 Hypo-osmolality and hyponatremia; I13.0 Hypertensive heart and chronic kidney disease with heart failure and stage 1 through stage 4 chronic kidney disease, or unspecified chronic kidney disease; I48.91 Unspecified atrial fibrillation; I70.235 Atherosclerosis of native arteries of right leg with ulceration of other part of foot; L97.513 Non-pressure chronic ulcer of other part of right foot with necrosis of muscle; N18.30 Chronic kidney disease, stage 3 unspecified; D63.1 Anemia in chronic kidney disease; D69.6 Thrombocytopenia, unspecified; R33.9 Retention of urine, unspecified; G62.9 Polyneuropathy, unspecified; K21.9 Gastro-esophageal reflux disease without esophagitis; F03.90 Unspecified dementia, unspecified severity, without behavioral disturbance, psychotic disturbance, mood disturbance, and anxiety; F41.9 Anxiety disorder, unspecified; E78.5 Hyperlipidemia, unspecified; M19.90 Unspecified osteoarthritis, unspecified site; I25.5 Ischemic cardiomyopathy; D45 Polycythemia vera; Z85.6 Personal history of leukemia; Z79.01 Long term (current) use of anticoagulants; Z95.820 Peripheral vascular angioplasty status with implants and grafts
CPT/HCPCS: 36415; 71045; 75716; 75774; 76937; 80048; 80053; 81001; 83605; 83735; 83880; 85025; 85520; 85610; 85730; 87040; 93926; 93970; 94760; 94762; 96365; 96375; 97110; 97161; 97165; 97530; 97535; 99152; 99153; 99284-25; A9270; C1760; C1769; C1887; C1894; J0690; J0696; J1644; J1940; J2250; J2270; J3010; J7030; J7050; Q9967

== ENCOUNTER 2023-08-15 16:02 | Inpatient (IN) | payer OTHER ==
[~2023-08-15] VITALS: Ht 185.4 cm; Wt 88.8 kg
[~2023-08-15 16:02] MED LIST changes: +Cephalexin500 M1 PO; +ESCI10 PO
[2023-08-15 16:45] LABS: Hematocrit 36.8 % (37.0-53.0); Hemoglobin 10.2 g/dL (13.5-17.5); Mean Corpuscular HGB 25.2 pg (26.0-34.0); Mean Corpuscular HGB Conc 27.7 g/dL (31.5-36.5); Mean Corpuscular Volume 91 fL (80-100); Mean Platelet Volume 12.3 fL (9.1-12.4); NRBC ABSOLUTE 0.14 K/mm3 (0.00-0.02); NRBC Auto 0.3 /100 WBC (0.0-0.2); Platelet Count 290 K/mm3 (150-400); RDW Coefficient Variation 19.3 % (11.7-14.2); RDW Standard Deviation 63.3 fL (35.1-46.3); Red Blood Cell Count 4.04 M/mm3 (4.30-5.90); White Blood Cell Count 41.94 K/mm3 (4.00-11.30)
[2023-08-15 17:10] LABS: LYMPHOCYTES ABSOLUTE MAN 1.67 K/mm3 (0.84-5.20); LYMPHOCYTES PERCENT MAN 4 % (21-46); MYELOCYTE ABSOLUTE MAN 0.83 K/mm3 (0.00-0.00); MYELOCYTE PERCENT MAN 2 % (0-0); TOTAL CELLS COUNTED 100
[2023-08-15 17:11] LABS: BAND PERCENT MAN 2 % (0-8); BASOPHILS PERCENT MAN 0 % (0-2); EOSINOPHILS ABSOLUTE MAN 1.67 K/mm3 (0.00-0.68); EOSINOPHILS PERCENT MAN 4 % (0-6); METAMYELOCYTE ABSOLUTE MAN 0.41 K/mm3 (0.00-0.00); METAMYELOCYTE PERCENT MAN 1 % (0-0); MONOCYTES ABSOLUTE MAN 2.93 K/mm3 (0.16-1.47); MONOCYTES PERCENT MAN 7 % (4-13); NEUTROPHILS ABSOLUTE MAN 34.39 K/mm3 (1.96-9.15); SEG NEUTROPHILS PERCENT MAN 80 % (41-73)
[2023-08-15 17:14] LABS: Albumin/Globulin Ratio 0.7 (0.8-1.8); Bilirubin, Total 0.4 mg/dL (0.1-1.0); Bun/Creatinine Ratio 27.7 (12.0-20.0); Calcium, Blood 7.8 mg/dL (8.5-10.1); Creatinine, Blood 1.77 mg/dL (0.60-1.20); Globulin, Blood 4.5 g/dL (2.2-4.0); Potassium, Blood 5.6 mmol/L (3.5-5.5); Total Protein, Blood 7.5 g/dL (6.4-8.2)
[2023-08-15] MEDS ORDERED: Furosemide 10 MG/ML 4ML Vial IV ONE (19:55)
[2023-08-15] MEDS ORDERED: Benzonatate 100 MG Cap PO PRN (20:10)
[2023-08-15] MEDS ORDERED: FLU VACC QS2023-24(6MOS UP)/PF 60 MCG/0.5 ML SYRINGE IM ONE (20:40)
[2023-08-15] MEDS ORDERED: Ipratropium/Albuterol SulF 2.5-0.5MG/3 ML Amp INH SCH (20:40)
[2023-08-15] MEDS ORDERED: HYDR1TAB94 PO (20:58)
[2023-08-15] MEDS ORDERED: Acetaminophen 500 MG Tab PO PRN (21:15)
[2023-08-15] MEDS ORDERED: Loperamide HCl 2 MG Cap PO PRN (21:20)
[2023-08-15] MEDS ORDERED: HYDROcodone 5-APAP 325 TAB PO PRN (21:25)
[2023-08-15] MEDS ORDERED: CeFAZolin Sodium 2,000 MG in NS 50 ML IV ONE (21:40)
[2023-08-15 21:54] VITALS: BP 124/79
[2023-08-15] MEDS ORDERED: NS 250 ML IV PRN (22:55)
[2023-08-16 02:43] VITALS: BP 112/61
--- NOTE | 2023-08-16 04:15 | NUR ---
SHIFT LESLEE 78 YR M ADMITTED THIS SHIFT FROM THE ED. FULL CODE. PT HAS VERY COURSE/RHONCI LUNGS AND HIS BREATHING SOUNDS "GURGLY". HE C/O NOT BEING ABLE TO COUGH ANYTHING UP. HE IS CONFUSED AND NEEDS ALOT OF REDIRECTION. HE CAME UP FROM ED W/ A CONDOM CATH BUT LATER PULLED IT OFF AND SET IT ON HIS BEDSIDE TABLE. HE ALSO PULLED OUT HIS IV. HE HAS TRIED TO GET OUT OF BED ON HIS OWN SEVERAL TIMES AND SETS OFF THE BED ALARM DESPITE HAVING IT EXPLAINED TO HIM MULTIPLE TIMES. HE IS ALSO ON A FLUID RESTRICTION BUT CONTINUALLY ASKS FOR SODA AND SEEMS SURPRISED WHEN HE IS TOLD THAT HIS FLUIDS ARE LIMITED. HE IS VERY PLEASANT HOWEVER. BED IN LOW POSITION AND CALL LIGHT IN REACH.
[2023-08-16 05:02] LABS: Hematocrit 31.8 % (37.0-53.0); Mean Corpuscular HGB 25.4 pg (26.0-34.0); Mean Corpuscular HGB Conc 28.3 g/dL (31.5-36.5); Mean Corpuscular Volume 90 fL (80-100); Mean Platelet Volume 12.1 fL (9.1-12.4); NRBC ABSOLUTE 0.12 K/mm3 (0.00-0.02); NRBC Auto 0.3 /100 WBC (0.0-0.2); Platelet Count 315 K/mm3 (150-400); RDW Coefficient Variation 19.7 % (11.7-14.2); RDW Standard Deviation 62.6 fL (35.1-46.3); Red Blood Cell Count 3.55 M/mm3 (4.30-5.90); White Blood Cell Count 47.11 K/mm3 (4.00-11.30)
[2023-08-16 05:52] LABS: BAND PERCENT MAN 5 % (0-8); BASOPHILS PERCENT MAN 0 % (0-2); EOSINOPHILS PERCENT MAN 0 % (0-6); LYMPHOCYTES ABSOLUTE MAN 0.94 K/mm3 (0.84-5.20); LYMPHOCYTES PERCENT MAN 2 % (21-46); METAMYELOCYTE ABSOLUTE MAN 0.47 K/mm3 (0.00-0.00); METAMYELOCYTE PERCENT MAN 1 % (0-0); MONOCYTES ABSOLUTE MAN 1.41 K/mm3 (0.16-1.47); MONOCYTES PERCENT MAN 3 % (4-13); MYELOCYTE ABSOLUTE MAN 0.47 K/mm3 (0.00-0.00); MYELOCYTE PERCENT MAN 1 % (0-0); NEUTROPHILS ABSOLUTE MAN 43.81 K/mm3 (1.96-9.15); SEG NEUTROPHILS PERCENT MAN 88 % (41-73); TOTAL CELLS COUNTED 100
[2023-08-16] MEDS ORDERED: Levothyroxine Sodium 0.05 MG Tab PO SCH (06:00)
[2023-08-16 06:40] LABS: Albumin, Blood 2.8 g/dL (3.4-5.0); Albumin/Globulin Ratio 0.6 (0.8-1.8); Bilirubin, Total 0.5 mg/dL (0.1-1.0); Bun/Creatinine Ratio 28.7 (12.0-20.0); Calcium, Blood 7.8 mg/dL (8.5-10.1); Creatinine, Blood 1.71 mg/dL (0.60-1.20); Globulin, Blood 4.5 g/dL (2.2-4.0); Potassium, Blood 5.3 mmol/L (3.5-5.5); Total Protein, Blood 7.3 g/dL (6.4-8.2)
[2023-08-16] MEDS ORDERED: Omeprazole 20 MG CapCR PO SCH (07:30)
[2023-08-16 07:56] VITALS: BP 121/66
[2023-08-16] MEDS ORDERED: CeFAZolin Sodium 2,000 MG in NS 50 ML IV SCH (08:00)
[2023-08-16] MEDS ORDERED: Carvedilol 25 MG Tab PO SCH (08:00)
[2023-08-16] MEDS ORDERED: Calcium Carbonate 1,250 MG TABLET PO SCH (09:00)
[2023-08-16] MEDS ORDERED: Folic Acid 1 MG TAB PO SCH (09:00)
[2023-08-16] MEDS ORDERED: Gabapentin 300 MG Cap PO SCH (09:00)
[2023-08-16] MEDS ORDERED: Cholecalciferol 1000 Unit Tablet (=25MCG) PO SCH (09:00)
[2023-08-16] MEDS ORDERED: Lactobacil 2-S.Thermo-Bifido 1 1 Cap PO SCH (09:00)
[2023-08-16] MEDS ORDERED: Furosemide 10 MG/ML 4ML Vial IV SCH (09:00)
[2023-08-16] MEDS ORDERED: Multivitamins 1 Tab PO SCH (09:00)
[2023-08-16] MEDS ORDERED: Cyanocobalamin 500 MCG Tab PO SCH (09:00)
[2023-08-16] MEDS ORDERED: Enoxaparin 30 MG/0.3 ML SYR SC SCH (09:00)
[2023-08-16] MEDS ORDERED: Citalopram Hydrobromide 10 MG TAB PO SCH (09:00)
[2023-08-16] MEDS ORDERED: Donepezil HCl 5 MG Tab PO SCH (09:00)
[2023-08-16] MEDS ORDERED: Potassium Chloride 10 Meq Tablet SA PO SCH ×2 (09:00)
[2023-08-16 15:31] VITALS: BP 119/72
[2023-08-16] MEDS ORDERED: Rivaroxaban 10 MG Tab PO SCH (18:00)
--- NOTE | 2023-08-16 19:02 | NUR ---
PT AAOX3-4 TODAY WITH INTERMITTENT CONFUSION. PT FORGETFUL. X1 ASSIST TO BSC. PT IS IS ON 5L CONTINUOUS NC. BL=3L. PT HAS GOOD APPETITE. PT GIVEN PAIN MEDS FOR RLE PAIN.
[2023-08-16 19:50] VITALS: BP 112/65
[2023-08-16] MEDS ORDERED: Tamsulosin HCl 0.4 MG Cap PO SCH (21:00)
[2023-08-16] MEDS ORDERED: TraZODone HCl 50 MG Tab PO SCH (21:00)
[2023-08-17] VITALS (15 sets, daily range): BP systolic 98–125; BP diastolic 30–76
[2023-08-17 05:39] LABS: Hematocrit 33.1 % (37.0-53.0); Hemoglobin 9.3 g/dL (13.5-17.5); Mean Corpuscular HGB 25.3 pg (26.0-34.0); Mean Corpuscular HGB Conc 28.1 g/dL (31.5-36.5); Mean Corpuscular Volume 90 fL (80-100); Mean Platelet Volume 12.2 fL (9.1-12.4); NRBC ABSOLUTE 0.21 K/mm3 (0.00-0.02); NRBC Auto 0.4 /100 WBC (0.0-0.2); Platelet Count 306 K/mm3 (150-400); RDW Coefficient Variation 19.6 % (11.7-14.2); RDW Standard Deviation 62.6 fL (35.1-46.3); Red Blood Cell Count 3.68 M/mm3 (4.30-5.90)
[2023-08-17 05:46] LABS: White Blood Cell Count 52.25 K/mm3 (4.00-11.30)
[2023-08-17 06:12] LABS: BAND PERCENT MAN 6 % (0-8); BASOPHILS PERCENT MAN 0 % (0-2); EOSINOPHILS ABSOLUTE MAN 0.52 K/mm3 (0.00-0.68); EOSINOPHILS PERCENT MAN 1 % (0-6); LYMPHOCYTES ABSOLUTE MAN 0.52 K/mm3 (0.84-5.20); LYMPHOCYTES PERCENT MAN 1 % (21-46); METAMYELOCYTE ABSOLUTE MAN 1.56 K/mm3 (0.00-0.00); METAMYELOCYTE PERCENT MAN 3 % (0-0); MONOCYTES ABSOLUTE MAN 2.09 K/mm3 (0.16-1.47); MONOCYTES PERCENT MAN 4 % (4-13); MYELOCYTE ABSOLUTE MAN 1.04 K/mm3 (0.00-0.00); MYELOCYTE PERCENT MAN 2 % (0-0); SEG NEUTROPHILS PERCENT MAN 83 % (41-73); TOTAL CELLS COUNTED 100
[2023-08-17 06:16] LABS: Albumin/Globulin Ratio 0.7 (0.8-1.8); Bilirubin, Total 0.4 mg/dL (0.1-1.0); Bun/Creatinine Ratio 29.5 (12.0-20.0); Calcium, Blood 8.2 mg/dL (8.5-10.1); Creatinine, Blood 2.07 mg/dL (0.60-1.20); Globulin, Blood 4.2 g/dL (2.2-4.0); Magnesium, Blood 2.6 mg/dL (1.6-2.4); Phosphorus, Blood 5.8 mg/dL (2.5-4.9); Potassium, Blood 5.9 mmol/L (3.5-5.5); Total Protein, Blood 7.2 g/dL (6.4-8.2)
--- NOTE | 2023-08-17 06:31 | NUR ---
Shift Summary Pt AOx2, he was impulsive t/o the night trying to get out of bed multiple times however he is easily redirectable back to bed. He had a few small voids 50-150 mL. He is on a 300 mL fluid restriction at night. At one point he did aspirate water, but he has been able to drink without issues since then. His lungs are wet sounding and he has a productive cough. Currently on 5L O2 NC with humidifier, 8L while up. Pt does desaturate quickly while up on 4-5L.
[2023-08-17 08:14] LABS: Base Excess Venous -4.3 mmol/L; Bicarbonate Venous 20.3 mmol/L (24.0-30.0); PCO2 Venous 63.4 mmHg (38-42); pH Blood Venous 7.19 (7.34-7.37)
[2023-08-17] MEDS ORDERED: Lactated Ringer's 250 ML IV ONE (08:30)
[2023-08-17] MEDS ORDERED: HYDROXYurea 500 MG Cap PO SCH (09:00)
--- NOTE | 2023-08-17 09:59 | NUR ---
ASSUMED CARE OF PATIENT AT 0715. ON HUMIDIFIED O2 @ 5 L/MIN NC, NO CONTINUOUS OXIMETRY. A&O X 2-3, REDIRECTABLE AT TIMES. PLACED PT ON CONT OXIMETRY, O2 SATS SHOWING 90-91%, HR 100-111. O2 INCREASED TO 6 L/MIN, WITH NO APPRECIABLE CHANGE IN O2 SAT. VBG DRAWN AT ~0750; CRITICAL RESULT CALLED TO ME AT ~ 0810 WITH PH 7.19 AND CO2 58. BREATH SOUNDS DIM IN BILATERAL UL, COARSE AND MOIST IN BILATERAL LL. DR. MCGOWAN NOTIFIED, ORDERED STAT ABG. ABG WAS CANCELLED SHORTLY THEREAFTER. PT PLACED ON BIPAP BY RT AMARI. RECEIVED ORDERS FOR LR 250 ML BOLUS, BUT UNABLE TO START PT'S SOLE IV LEAKED AND WAS DIFFICULT TO FLUSH. ATTEMPTED TWICE TO START NEW IV WITHOUT SUCCESS. PT KEPT ATTEMPTING TO TAKE BIPAP MASK OFF, EDUCATED TO LEAVE ON. DECISION MADE TO TRANSFER PT TO ICU 5, REPORT GIVEN TO Cookie RAMOS RN. PATIENT TRANSFERRED VIA HIS BED AT 0940. PT'S DENTURES, CELL PHONE, GLASSESS, AND BAG OF OTHER BELONGINGS SENT WITH HIM TO ICU. NOTIFIED PT'S SON (KATHERINE [phone]) OF TRANSFER TO HIGHER LOC AT 1010.
--- NOTE | 2023-08-17 10:05 | NUR ---
TRANSFER TO ICU PT ARRIVED TO ICU 5 AT 0945 PCU STATUS. PT ARRIVES ON BIPAP , FIO2 40%. PT IS AWAKE AND ALERT, BUT IS CONFUSED AND NEEDS REDIRECTION FREQUENTLY. PT RESTING QUIETLY WHEN UNDISTURBED. VITAL SIGNS STABLE. PT HR AFIB 80-100'S. PT WITHOUT IV ACCESS UPON ARRIVAL. ATTENDS IN PLACE. PT WITH SCATTERED BRUISING AND SKIN TEARS T/O. REDDNESS TO RLE NOTED. REDDNESS TO COCCYX NOTED. PHOTOS TAKEN AND DRESSINGS APPLIED. NO FAMILY AT BEDSIDE. WILL CONTINUE TO MONITOR.
--- NOTE | 2023-08-17 11:44 | NUR ---
DR HENDERSON PT CONTINUALLY ATTEMPTING TO GET OOB AND TAKE OFF BIPAP. PT UP TO RECLINER CHAIR WITH TAB ALARM IN PLACE. PT NOT REDIRECTABLE. DR HENDERSON NOTIFIED. ORDERS FOR STAT VBG WHILE ON BIPAP, THEN OK TO TAKE PT OFF BIPAP. PT PLACED ON 5L O2 NC AT THIS TIME. PT HAS MADE MULTIPLE REQUESTS TO GO HOME. PALLIATIVE CARE TO SEE PT THIS SHIFT.
[2023-08-17 12:07] LABS: Base Excess Venous -5.1 mmol/L; PCO2 Venous 59.7 mmHg (38-42); pH Blood Venous 7.19 (7.34-7.37)
--- NOTE | 2023-08-17 12:46 | NUR ---
SITTER PT BACK TO BED FROM RECLINER CHAIR. PT ON 5L O2 NC. 1:1 SITTER AT BEDSIDE AT THIS TIME. WILL CONTINUE TO MONITOR.
--- NOTE | 2023-08-17 18:10 | NUR ---
SHIFT SUMMARY NO ACUTE CHANGES THIS SHIFT. PT HAS REMAINED AWAKE AND ALERT MOST OF THIS SHIFT. PT ABLE TO ANSWER SIMPLE QUESTIONS APPROPRIATELY, BUT IS FORGETFUL AT TIMES AND NEEDS FREQUENT REDIRECTION. SITTER AT BEDSIDE DUE TO PT ATTEMPTING TO GET OOB AND PULL AT LINES/TUBES. PT HAS REFUSED BIPAP SINCE BEING MORE ALERT. PT ON 5L O2 NC AT THIS TIME. VITAL SIGNS STABLE. EXTENSIVE DISCUSSION WITH PT SON KATHERINE ABOUT PT WISHES AND GOALS OF CARE. BOTH PT AND SON KATHERINE WANT TO CONTINUE WITH FULL TREATMENT, BUT PT STILL REFUSES BIPAP. POWERGLIDE TO FERNANDO AND PIV TO LFA SALINE LOCKED. PT WITH ATTENDS IN PLACE AND PT ABLE TO USE URINAL WITH ASSISTANCE TO VOID. PT UP TO BSC FOR BM THIS EVENING. PT TAKING PO INTAKE WELL, BUT PT WITH POOR APPETITE. WOUNDS REMAIN UNCHANGED, SEE PHOTOS IN CHART. WILL CONTINUE TO MONITOR AND REPORT OFF TO ONCOMING RN.
--- NOTE | 2023-08-17 19:37 | NUR ---
ASSUMED CARE PT IS A&O X3; SPO2 >92% ON 3LNC; MAP >65; RATE IN THE 80-90'S. DENIES CP, SOB, AND NAUSEA AT THIS TIME.
--- NOTE | 2023-08-17 20:59 | NUR ---
UPDATE PT ALTERNATES BETWEEN BREATHING THROUGH NARES AND MOUTH AND DESATURATES DOWN TO 80'S. SWITCHED FROM NC TO OXYMIZER MASK @ 7L AND PT MAINTAINING SPO2 >92%; 96~% AT THIS TIME.
[2023-08-18] VITALS (59 sets, daily range): BP systolic 74–125; BP diastolic 41–73
--- NOTE | 2023-08-18 01:22 | NUR ---
UPDATE UNABLE TO GET ADEQUATE SPO2 READING ON PT. FINGER PROBE, STICKY PROBE ATTEMPTED ON ALL FINGERS/TOES; NOSE PROBE AND FOREHEAD PROBE UNABLE TO GIVE READING EITHER. PT IS CURRENTLY READING >92% SPO2 W/ LOW PERFUSION READING.
--- NOTE | 2023-08-18 02:17 | NUR ---
UPDATE PT EXPERIENCING SOME ABDOMINAL PAIN. INITIALLY PT WAS UNABLE TO DESCRIBE PAIN AND MEDICATED PER EMAR. PT NOW STATES THAT HE FEELS CONSTIPATED. BT AUSCULTATED IN ALL 4 QUADRANTS. NO TENDERNESS NOTED W/ PALPATION.
--- NOTE | 2023-08-18 02:34 | NUR ---
UPDATE PT HAS BEEN ON 5LNC SINCE MIDNIGHT D/T REPEATEDLY PULLING MASK OFF. PT CONTINUES TO SATURATE >92% SPO2 (LOW PERFUSION READING, SEE PREVIOUS NOTE). MENTATION REMAINS UNCHANGED AT THIS TIME.
[2023-08-18 03:15] LABS: Base Excess Venous -5.1 mmol/L; Bicarbonate Venous 19.3 mmol/L (24.0-30.0); PCO2 Venous 67.3 mmHg (38-42)
[2023-08-18 03:16] LABS: pH Blood Venous 7.16 (7.34-7.37)
[2023-08-18 03:19] LABS: Hematocrit 32.5 % (37.0-53.0); Mean Corpuscular HGB 25.1 pg (26.0-34.0); Mean Corpuscular HGB Conc 27.7 g/dL (31.5-36.5); Mean Corpuscular Volume 91 fL (80-100); Mean Platelet Volume 12.2 fL (9.1-12.4); NRBC ABSOLUTE 0.13 K/mm3 (0.00-0.02); NRBC Auto 0.2 /100 WBC (0.0-0.2); Platelet Count 277 K/mm3 (150-400); RDW Coefficient Variation 19.6 % (11.7-14.2); RDW Standard Deviation 62.7 fL (35.1-46.3); Red Blood Cell Count 3.58 M/mm3 (4.30-5.90)
[2023-08-18] MEDS ORDERED: OLANZapine 10 MG Vial IM PRN (03:20)
[2023-08-18 03:25] LABS: White Blood Cell Count 53.54 K/mm3 (4.00-11.30)
--- NOTE | 2023-08-18 03:27 | NUR ---
UPDATE PT NOW ON BIPAP D/T WORSENING VBG READINGS. PT TOLERATING AT THIS TIME. 14/8, 14, 35% FIO2.
[2023-08-18 03:44] LABS: Magnesium, Blood 2.5 mg/dL (1.6-2.4)
[2023-08-18 04:17] LABS: MYELOCYTE ABSOLUTE MAN 3.74 K/mm3 (0.00-0.00); MYELOCYTE PERCENT MAN 7 % (0-0); TOTAL CELLS COUNTED 100
[2023-08-18 04:33] LABS: Alanine Aminotransfer (ALT/SGP <6 U/L (12-78); Albumin, Blood 2.9 g/dL (3.4-5.0); Albumin/Globulin Ratio 0.7 (0.8-1.8); Alk Phos 134 U/L (50-136); Anion Gap 2 mmol/L (6-16); Aspartate Aminotrans (AST/SGOT 22 U/L (12-37); Bilirubin, Total 0.3 mg/dL (0.1-1.0); Blood Urea Nitrogen 68 mg/dL (8-24); Bun/Creatinine Ratio 30.1 (12.0-20.0); CO2, Blood 26 mmol/L (21-32); Calcium, Blood 7.8 mg/dL (8.5-10.1); Chloride, Blood 106 mmol/L (98-108); Creatinine, Blood 2.26 mg/dL (0.60-1.20); Globulin, Blood 4.1 g/dL (2.2-4.0); Glomerular Filtration Rate 29 (60-); Glucose, Blood 131 mg/dL (70-99); Phosphorus, Blood 6.2 mg/dL (2.5-4.9); Potassium, Blood 5.9 mmol/L (3.5-5.5); Sodium, Blood 134 mmol/L (136-145)
--- NOTE | 2023-08-18 05:40 | NUR ---
SHIFT SUMMARY PT IS CURRENTLY RESTING QUIETLY AT THIS TIME. ADMINISTERED ZYPREXA PER EMAR D/T PT BECOMING AGITATED AND ATTEMPTING TO PULL OFF BIPAP MASK. PT CONTINUES TO WAKE SPONTANEOUSLY AND ANSWER QUESTIONS APPROPRIATELY. EDUCATED PT ON IMPORTANCE OF WEARING BIPAP MASK AND PT STATES "I JUST CAN'T WEAR IT". SPO2 PROBE APPEARS TO BE READING ADEQUATELY AT TIME OF THIS NOTE W/ READINGS >92%. BIPAP SETTINGS UNCHANGED. MAP AND RATE HAVE REMAINED >65 AND 80-90'S.
[2023-08-18 07:37] LABS: Base Excess Venous -6.8 mmol/L; Bicarbonate Venous 18.3 mmol/L (24.0-30.0); PCO2 Venous 71.9 mmHg (38-42); PO2 Venous 61 mmHg (38-42); pH Blood Venous 7.11 (7.34-7.37)
[2023-08-18] MEDS ORDERED: Bumetanide 10 MG in NS 60 ML IV SCH (08:20)
[2023-08-18] MEDS ORDERED: Sodium Zirconium Cyclosilicate 10 GM Packet PO SCH (09:00)
[2023-08-18] MEDS ORDERED: Furosemide 10 MG / ML 2ML Vial IV SCH (09:00)
[2023-08-18] MEDS ORDERED: NS 1,000 ML IV ONE ×3 (09:30→11:00)
[2023-08-18] MEDS ORDERED: propofoL 100 ML IV SCH (09:40)
--- NOTE | 2023-08-18 09:59 | NUR ---
INTUBATION PT REMAINED OBTUNEDED ON BIPAP THROUGHOUT THE MORNING. DR MUÑOZ AT BEDSIDE AND SPOKE WITH PT SON KATHERINE. DECISION MADE TO INTUBATED PT DUE TO WORSENING RESPIRATORY STATUS. PT MED WITH PROPOFOL AND VERSED, RT AT BEDSIDE. PT INTUBATED AT 0932 WITH BILAT BREATH SOUNDS NOTED AND GOOD ETCO2 WAVEFORM NOTED. 8.0 ETT, 26 CM AT TEETH NOTED. OGT PLACED. ETT AND OGT CONFIRMED BY CXR. PROPOFOL GTT STARTED, SEE FLOWSHEET FOR TITRATIONS. DR MUÑOZ UPDATING PT FAMILY AT THIS TIME.
[2023-08-18 10:07] LABS: Source, Urine Foley catheter
[2023-08-18] MEDS ORDERED: Albumin (Human) 25gm/100ml 100 ML IV ONE (10:50)
[2023-08-18] MEDS ORDERED: Pantoprazole Sodium 40 MG Injection IV SCH (11:00)
[2023-08-18] MEDS ORDERED: Ipratropium/Albuterol SulF 2.5-0.5MG/3 ML Amp INH SCH (11:00)
[2023-08-18] MEDS ORDERED: HYDROmorphone HCl/Pf 1MG SYR IV PRN (11:05)
[2023-08-18] MEDS ORDERED: Midazolam HCl 1MG / ML 2ML Vial IV PRN (11:05)
[2023-08-18] MEDS ORDERED: Haloperidol Lactate Inj. 5 MG/ML Injection IV PRN (11:10)
[2023-08-18 11:18] LABS: Base Excess Venous -7.1 mmol/L; Bicarbonate Venous 18.6 mmol/L (24.0-30.0)
[2023-08-18 11:19] LABS: PCO2 Venous 60.3 mmHg (38-42); pH Blood Venous 7.16 (7.34-7.37)
[2023-08-18 11:33] LABS: International Normalized Ratio 1.53; Prothrombin Time Results 15.7 Sec (9.7-11.5)
[2023-08-18 11:44] LABS: Appearance, Urine Hazy (Clear); Bilirubin, Urine Neg (Neg); Blood, Urine 2+ (Neg); Color, Urine Yellow (P-Yellow); Glucose Qualitative, Urine Neg (Neg); Ketones, Urine Neg (Neg); Leukocyte Esterase, Urine Neg (Neg); Nitrite, Urine Neg (Neg); Protein, Urine 2+ (Neg); Urobilinogen, Urine NORM (Normal)
[2023-08-18] MEDS ORDERED: Hydrogen Peroxide 1.5 % Solution MT SCH ×2 (12:00)
[2023-08-18] MEDS ORDERED: NS 1,000 ML IV SCH (12:00)
[2023-08-18 12:22] LABS: Hematocrit 31.4 % (37.0-53.0); Hemoglobin 8.7 g/dL (13.5-17.5); Mean Corpuscular HGB 25.1 pg (26.0-34.0); Mean Corpuscular HGB Conc 27.7 g/dL (31.5-36.5); Mean Corpuscular Volume 91 fL (80-100); Mean Platelet Volume 10.5 fL (9.1-12.4); NRBC ABSOLUTE 0.19 K/mm3 (0.00-0.02); NRBC Auto 0.5 /100 WBC (0.0-0.2); Platelet Count 230 K/mm3 (150-400); RDW Coefficient Variation 19.2 % (11.7-14.2); RDW Standard Deviation 62.5 fL (35.1-46.3); Red Blood Cell Count 3.46 M/mm3 (4.30-5.90)
--- NOTE | 2023-08-18 12:42 | NUR ---
Met with pt's son and daughter this am. They had just met with Dr.s' Gaona and agreed to change pt's code status to DNR. They are awaiting their other siblings who should all be getting here around noon tomorrow. At that time, we will again discuss pt's condition, and according to son and daughter, likely de-escalate care. Bedside nurse aware. Palliative Care to remain involved, will check in with family again tomorrow.
[2023-08-18 13:06] LABS: Bun/Creatinine Ratio 29.9 (12.0-20.0); Calcium, Blood 7.4 mg/dL (8.5-10.1); Creatinine, Blood 2.31 mg/dL (0.60-1.20); Potassium, Blood 5.4 mmol/L (3.5-5.5)
[2023-08-18 13:32] LABS: Amorphous Light (0-Heavy); Bacteria Few /hpf; Granular Casts 0-2 /lpf (0); Hyaline Casts 0-2 /lpf (0-2); Mucus Light (0-Heavy); Squamous Epithelial Cells Rare /hpf (Few)
[2023-08-18 13:38] LABS: BAND PERCENT MAN 7 % (0-8); BASOPHILS ABSOLUTE MAN 0.38 K/mm3 (0.00-0.23); BASOPHILS PERCENT MAN 1 % (0-2); BLASTS PERCENT MAN 1 % (0-0); EOSINOPHILS ABSOLUTE MAN 0.76 K/mm3 (0.00-0.68); EOSINOPHILS PERCENT MAN 2 % (0-6); METAMYELOCYTE ABSOLUTE MAN 0.38 K/mm3 (0.00-0.00); METAMYELOCYTE PERCENT MAN 1 % (0-0); MONOCYTES ABSOLUTE MAN 2.68 K/mm3 (0.16-1.47); MONOCYTES PERCENT MAN 7 % (4-13); MYELOCYTE ABSOLUTE MAN 1.15 K/mm3 (0.00-0.00); MYELOCYTE PERCENT MAN 3 % (0-0); NEUTROPHILS ABSOLUTE MAN 32.64 K/mm3 (1.96-9.15); SEG NEUTROPHILS PERCENT MAN 78 % (41-73); TOTAL CELLS COUNTED 100
[2023-08-18] MEDS ORDERED: Sodium Zirconium Cyclosilicate 10 GM Packet PT SCH (14:00)
[2023-08-18 14:47] LABS: PCO2 Arterial 54.9 mmHg (35-45)
[2023-08-18 14:49] LABS: pH Blood Arterial 7.19 (7.35-7.45)
[2023-08-18] MEDS ORDERED: Gabapentin 250 MG/5 ML ORAL SYRINGE PT SCH (16:00)
--- NOTE | 2023-08-18 17:33 | NUR ---
SHIFT SUMMARY NO ACUTE CHANGES SINCE INTUBATION THIS MORNING. SEE INTUBATION NOTE FOR INFO. PT VENT SETTINGS REMAIN AC 20, TV 450, PEEP 5, FIO2 50%. PT CONTINUES TO HAVE COPIOUS ETT AND ORAL SECRETIONS. OGT IN PLACE, CLAMPED AT THIS TIME. PT SEDATED WITH PROPOFOL AT 50 MCG/KG/MIN. PT WITHDRAWS TO NOXIOUS STIMULI, BUT DOES NOT FOLLOW ANY COMMANDS. AVERY TEMP PROBE IN PLACE WITH YELLOW URINE OUTPUT NOTED. SBW RESTRAINTS IN PLACE. MULTIPLE FAMILY MEMBERS AT BEDSIDE THROUGHOUT THE SHIFT. VITAL SIGNS STABLE. WILL CONTINUE TO MONITOR AND REPORT OFF TO ONCOMING RN.
[2023-08-18] MEDS ORDERED: Rivaroxaban 10 MG Tab PT SCH (18:00)
[2023-08-18] MEDS ORDERED: Bumetanide 0.25 MG/ML 4ML ViaL IV ONE (18:10)
--- NOTE | 2023-08-18 20:28 | NUR ---
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 VS remain stable, no acute concerns otherwise, monitoring output, pending family arrival for plan, DNR wristband noted to left wrist.
[2023-08-18] MEDS ORDERED: TraZODone HCl 50 MG Tab PT SCH (21:00)
[2023-08-18] MEDS ORDERED: CeFAZolin Sodium 2,000 MG in NS 50 ML IV SCH (21:00)
[2023-08-18] MEDS ORDERED: Carvedilol 25 MG Tab PT SCH (21:00)
[2023-08-18] MEDS ORDERED: Midazolam HCl 1MG / ML 2ML Vial XX ONE (22:32)
[2023-08-18] MEDS ORDERED: Propofol 10mg/ml 20 ml Vial (Procedural) IV ONE (22:32)
[2023-08-19] VITALS (45 sets, daily range): BP systolic 83–122; BP diastolic 45–79
[2023-08-19] MEDS ORDERED: NS 1,000 ML IV ONE (00:25)
--- NOTE | 2023-08-19 00:32 | NUR ---
UPDATE BP trending down, noted NS was not started earlier and started NS at 125. Presently had infused for about 2 hours, however urine output decreased over that time but has been < 30 mL/H since start of shift as well. Call placed to Dr. Leiva and explained situation, orders to increase PEEP from 5 to 8, 1 liter NS bolus now, Levophed if MAP remains < 60, MAP goal of 60, and discussed status/prognosis of patient as well considering goals of care. Virgen RN also aware and assisting.
[2023-08-19 04:13] LABS: Albumin, Blood 2.4 g/dL (3.4-5.0); Anion Gap 4 mmol/L (6-16); Blood Urea Nitrogen 70 mg/dL (8-24); Bun/Creatinine Ratio 25.7 (12.0-20.0); CO2, Blood 22 mmol/L (21-32); Chloride, Blood 110 mmol/L (98-108); Creatinine, Blood 2.72 mg/dL (0.60-1.20); Glomerular Filtration Rate 23 (60-); Glucose, Blood 100 mg/dL (70-99); Phosphorus, Blood 6.1 mg/dL (2.5-4.9); Potassium, Blood 5.4 mmol/L (3.5-5.5); Sodium, Blood 136 mmol/L (136-145); Vancomycin, Random 16.5 ug/mL
[2023-08-19] MEDS ORDERED: Levothyroxine Sodium 0.05 MG Tab PT SCH (06:00)
--- NOTE | 2023-08-19 07:08 | NUR ---
SHIFT SUMMARY Urine output decreased overnight as did BP, Bolus given and output unchanged overall/worse, BP holding MAP > 60 per MD order. Bed bath given earlier, oral cares performed, all linens changed. No acute concerns otherwise on shift, report given.
[2023-08-19] MEDS ORDERED: Vancomycin HCL 1,000 MG in NS 100 ML IV ONE (08:00)
[2023-08-19 08:24] LABS: Base Excess Venous -7.9 mmol/L; Bicarbonate Venous 18.2 mmol/L (24.0-30.0)
[2023-08-19 08:26] LABS: PCO2 Venous 51.3 mmHg (38-42)
[2023-08-19] MEDS ORDERED: Cholecalciferol 1000 Unit Tablet (=25MCG) PT SCH (09:00)
[2023-08-19] MEDS ORDERED: Cefepime HCl 1,000 MG in NS 50 ML IV SCH (09:00)
[2023-08-19] MEDS ORDERED: Multivitamins 1 Tab PT SCH (09:00)
[2023-08-19] MEDS ORDERED: Cyanocobalamin 500 MCG Tab PT SCH (09:00)
[2023-08-19] MEDS ORDERED: HYDROXYurea 500 MG Cap PT SCH (09:00)
[2023-08-19] MEDS ORDERED: Folic Acid 1 MG TAB PT SCH (09:00)
[2023-08-19] MEDS ORDERED: Citalopram Hydrobromide 10 MG TAB PT SCH (09:00)
[2023-08-19] MEDS ORDERED: Sodium Bicarb 8.4% Inj 150 MEQ in Dextrose 5% 1,000 ML IV SCH (09:15)
--- NOTE | 2023-08-19 10:18 | NUR ---
Spiritual Care Visit. Family of Pt. are present and welcome my visit. Family is known to this chemists. Facilitated some life review, and established rapport. Family verbalized that family members from out of the area are in route and verbalized gratitude for the spiritual care visit.
[2023-08-19] MEDS ORDERED: Bumetanide 0.25 MG/ML 4ML ViaL IV ONE ×2 (11:00→17:00)
[2023-08-19 14:50] LABS: BAND PERCENT MAN 2 % (0-8); BASOPHILS ABSOLUTE MAN 1.07 K/mm3 (0.00-0.23); BASOPHILS PERCENT MAN 2 % (0-2); BLASTS PERCENT MAN 2 % (0-0); EOSINOPHILS PERCENT MAN 3 % (0-6); LYMPHOCYTES PERCENT MAN 3 % (21-46); METAMYELOCYTE PERCENT MAN 3 % (0-0); MONOCYTES PERCENT MAN 3 % (4-13); NEUTROPHILS ABSOLUTE MAN 41.22 K/mm3 (1.96-9.15); SEG NEUTROPHILS PERCENT MAN 75 % (41-73)
--- NOTE | 2023-08-19 16:08 | NUR ---
UPDATE FAMILY AT BEDSIDE THROUGHOUT THE DAY. MORE FAMILY ARRIVING. PT'S FAMILY VERBALIZES REQUEST TO TRANSITION TO COMFORT CARE ONCE MORE FAMILY ARRIVE. PROPOFOL HAS BEEN OFF SINCE 1000. PT TOLERATED SPONT 10/8 FOR A FEW HOURS BUT BEGAN HAVING APNEIC PERIODS AND TRANSITIONED TO PREVIOUS SETTINGS AC/VC 20/450/8/45%. PT INTERMITTENTLY OPENS EYES, NODS/SHAKES HEAD. DOES NOT FOLLOW COMMANDS WITH EXTREMITIES BUT DOES MAKE SMALL MOVEMENTS WITH ALL EXTREMITIES. AFIB ON MONITOR, RATE 100S-110S. MAP >60. PT HAS HAD 60ML URINE OUTPUT THIS SHIFT.
[2023-08-19] MEDS ORDERED: OxyCODONE HCl Soln 20 MG/ML 1 ML Oral SYR SL PRN (16:25)
[2023-08-19] MEDS ORDERED: Morphine Sulfate 20 MG/1ML 1 ML Oral Syringe SL PRN (16:25)
[2023-08-19] MEDS ORDERED: Scopolamine Hydrobromide Patch TOP PRN (16:25)
[2023-08-19] MEDS ORDERED: Atropine Sulfate 1% Opth Soln 2ML BTL SL PRN (16:25)
[2023-08-19] MEDS ORDERED: LORazepam 1 MG Tab PO PRN (16:25)
[2023-08-19] MEDS ORDERED: Ondansetron HCl 2 MG / ML 2ML Vial IV PRN (16:25)
[2023-08-19] MEDS ORDERED: Haloperidol Lactate Inj. 5 MG/ML Injection IV PRN (16:25)
[2023-08-19] MEDS ORDERED: Morphine Sulfate 10 MG/ML 1MLSYR IV PRN (16:25)
[2023-08-19] MEDS ORDERED: HYDROmorphone HCl/Pf 1MG SYR IV PRN (16:25)
[2023-08-19] MEDS ORDERED: LORazepam 2 MG/ML 1ML Injection IV PRN (17:00)
--- NOTE | 2023-08-19 17:11 | NUR ---
Pt placed on comfort care and terminal withdrawl initiated. family and chaplian at bedside. pt medicated for airhunger and agggitaion. comfort quilt palced.
--- NOTE | 2023-08-19 17:25 | NUR ---
EXTUBATION/COMFORT CARE/TIME OF PT MEDICATED PER EMAR. PT EXTUBATED AT 1650. MULTIPLE FAMILY MEMBERS AT BEDSIDE. TIME OF 17:20.
--- NOTE | 2023-08-19 17:47 | NUR ---
"Spiritual Care | EOL Pt. had passed and family is at bedside. Though the family was freely sharing stories, this testing engineer facilitated more life review. Prayed for the Pt. and the family. At the time of this writing son José Antonio had not decided on the home, but will let the nursing staff know when they depart."
--- NOTE | 2023-08-19 18:06 | NUR ---
"Spiritual Care | [facility] Ch[facility] for the Pt. by the family."
== END 2023-08-19 19:27 | DRG 208 ==
LOC: ER 16:02 → MEDS 16:03 → ICUE 08-16 15:28 → MEDS 08-16 15:28 → ICUE 08-17 08:54
PROVIDERS: Emergency Medicine; Family Medicine; Hospitalist; Internal Medicine; Internal Medicine Critical Care Medicine; ADMIT Student in an Organized Health Care Education/Training Program
PROC: 5A09357 Assistance with Respiratory Ventilation, Less than 24 Consecutive Hours, Continuous Positive Airway Pressure (ICD-10-PCS; 2023-08-17)
PROC: 5A1945Z Respiratory Ventilation, 24-96 Consecutive Hours (ICD-10-PCS; principal; 2023-08-18)
PROC: 0BH17EZ Insertion of Endotracheal Airway into Trachea, Via Natural or Artificial Opening (ICD-10-PCS; 2023-08-18)
PROC: 4A033R1 Measurement of Arterial Saturation, Peripheral, Percutaneous Approach (ICD-10-PCS; 2023-08-18)
DX: J96.21 Acute and chronic respiratory failure with hypoxia (principal); I50.33 Acute on chronic diastolic (congestive) heart failure; I13.0 Hypertensive heart and chronic kidney disease with heart failure and stage 1 through stage 4 chronic kidney disease, or unspecified chronic kidney disease; F03.94 Unspecified dementia, unspecified severity, with anxiety; D47.1 Chronic myeloproliferative disease; I48.20 Chronic atrial fibrillation, unspecified; L03.115 Cellulitis of right lower limb; Z51.5 Encounter for palliative care; Z66 Do not resuscitate; I67.89 Other cerebrovascular disease; Z99.11 Dependence on respirator [ventilator] status; E87.4 Mixed disorder of acid-base balance; F05 Delirium due to known physiological condition; N17.9 Acute kidney failure, unspecified; J96.22 Acute and chronic respiratory failure with hypercapnia; D46.9 Myelodysplastic syndrome, unspecified; D45 Polycythemia vera; K21.9 Gastro-esophageal reflux disease without esophagitis; N18.31 Chronic kidney disease, stage 3a; I73.9 Peripheral vascular disease, unspecified; G62.9 Polyneuropathy, unspecified; N40.0 Benign prostatic hyperplasia without lower urinary tract symptoms; I27.20 Pulmonary hypertension, unspecified; J44.9 Chronic obstructive pulmonary disease, unspecified; E03.9 Hypothyroidism, unspecified; M19.90 Unspecified osteoarthritis, unspecified site; Z99.81 Dependence on supplemental oxygen; Z79.890 Hormone replacement therapy; Z88.8 Allergy status to other drugs, medicaments and biological substances; Z79.01 Long term (current) use of anticoagulants; Z87.891 Personal history of nicotine dependence; Z95.820 Peripheral vascular angioplasty status with implants and grafts; Z79.891 Long term (current) use of opiate analgesic
CPT/HCPCS: 31500; 36415; 36600; 51702; 71045; 76770; 80048; 80053; 80069; 80202; 81001; 82803; 83605; 83735; 83880; 84100; 84484; 85025; 85610; 87070; 87077; 87186; 87205; 93005; 93010; 93306; 94002; 94003; 94640; 94660; 94664; 94760; 94762; 96365; 96374; 96375; 96376; 99285-25; A9270; C1751; C9113; G0378; J0690; J0692; J1170; J1940; J2060; J2250; J2704; J3370; J7030; J7050; J7070; J7120; P9047